=== PATIENT | male | born 1955 | race Caucasian/White ===

== ENCOUNTER 2016-09-09 06:20 | Outpatient (CLI) | payer OTHER ==
[~2016-09-09] VITALS: Ht 170.2 cm; Wt 99.3 kg
[2016-09-09] MEDS ORDERED: IBUP-1780 PO (14:34)
[2016-09-09] MEDS ORDERED: PROP80TA3 PO (14:34)
[2016-09-09] MEDS ORDERED: LEVO175T5 PO (14:34)
[2016-09-09] MEDS ORDERED: GABA-486 PO (14:34)
== END 2016-09-09 14:36 ==
LOC: PREOP 06:20
PROVIDERS: ATTEND Internal Medicine Critical Care Medicine
DX: Z01.818 Encounter for other preprocedural examination (principal); R59.0 Localized enlarged lymph nodes

== ENCOUNTER 2016-09-11 06:39 | Day surgery (SDC) | payer BC ==
[~2016-09-11] VITALS: Ht 170.2 cm; Wt 99.3 kg
[~2016-09-11 06:39] MED LIST: GABA-486 PO; IBUP-1780 PO; LEVO175T5 PO; PROP80TA3 PO
[2016-09-11] MEDS ORDERED: fentaNYL INJECTION 100 MCG/2 ML AMP IVP PRN (06:45)
[2016-09-11] MEDS ORDERED: NS IV 1000 ML 1,000 ML IV PRN (06:45)
[2016-09-11] MEDS ORDERED: NALOXONE 0.4 MG/ML 1 ML (NARCAN) VIAL IVP PRN (06:45)
[2016-09-11] MEDS ORDERED: FLUMAZENIL (ROMAZICON) 0.1 MG/ML 5 ML VIAL INJ PRN (06:45)
[2016-09-11] MEDS ORDERED: MIDAZOLAM 2 MG/2 ML (VERSED) VIAL IVP PRN (06:45)
[2016-09-11 06:55] VITALS: BP 165/96
[2016-09-11] MEDS ORDERED: MIDAZOLAM 2 MG/2 ML (VERSED) VIAL ONE (07:03)
[2016-09-11] MEDS ORDERED: proPOfol 200 MG/20 ML (DIPRIVAN) VIAL IV ONE (07:03)
[2016-09-11] MEDS ORDERED: fentaNYL INJECTION 100 MCG/2 ML AMP ONE (07:03)
[2016-09-11] MEDS ORDERED: ROCURONIUM 50 MG/5 ML (ZEMURON) VIAL IV ONE (07:04)
[2016-09-11] MEDS ORDERED: ONDANSETRON 4 MG/2 ML (SDV) Z0FRAN ONE (07:04)
--- NOTE | 2016-09-11 07:04 | Progress Note-Pre Operative ---
Pre-Operative Progress Note H&P Reviewed The H&P was reviewed, patient examined and no changes noted. Date H&P Reviewed: Sep 11, 2016 Time H&P Reviewed: 07:03 Pre-Operative Diagnosis: lymphadenopathy ELI RUVALCABA DO Sep 11, 2016 07:04
[2016-09-11] MEDS ORDERED: SUCCINYLCHOLINE INJ 100 MG/5 ML SYR ONE (07:08)
[2016-09-11] MEDS ORDERED: NS IV 500 ML 500 ML ONE (07:52)
[2016-09-11] MEDS ORDERED: NS IV 500 ML 500 ML IV PRN (08:03)
--- NOTE | 2016-09-11 09:28 | Diagnostic Imaging Report ---
INDICATION: Post bronchoscopy followup. EXAMINATION: Portable chest at 8:57 AM Heart and mediastinum are normal. Lungs are clear. There are no effusions or pneumothoraces. IMPRESSION: Negative chest. Dictated by: Dictated on workstation # [id number]
[2016-09-11 09:35] VITALS: BP 128/84
[2016-09-11 10:10] VITALS: BP 124/88
[2016-09-11 10:15] VITALS: BP 124/88
--- NOTE | 2016-09-19 09:47 | Pulmonary Procedures ---
Pulmonary Procedures Date of Procedure Date of Service: Sep 11, 2016 Bronch Bronchoscopy with EBUS with bx of station 4L and 11L lymph nodes Preop DX: mediastinal lymphadenopathy PostOP DX: same Complications: None Pt was sedated per anesthesia. Bronchoscopy was advanced through the ED tube and an anatomical undertaken down to the segmental bronchi bilaterally. No endobronchial lesions noted. EBUS was then advanced through ET tube and the mediastinum was US. Station 11L and 4L lymph nodes were sampled via needle bx under US guidance. Pt tolerated procedure well. No complications noted. ELI RUVALCABA DO Sep 19, 2016 09:47
== END 2016-09-11 10:15 | disposition home or self-care (01) ==
LOC: ENDO 06:39
PROVIDERS: ATTEND Internal Medicine Critical Care Medicine
DX: R59.0 Localized enlarged lymph nodes (principal); I10 Essential (primary) hypertension
CPT/HCPCS: 71010; 88112; 88305

== ENCOUNTER → 2016-10-11 | Outpatient (CLI) | payer BC ==
[2016-10-11 10:09] LABS: BASOPHILS % (AUTO) 0 % (0-10); EOSINOPHILS % (AUTO) 0 % (0-10); LYMPHOCYTES # (AUTO) 1.1 X 10^3 (1.0-4.0); LYMPHOCYTES % (AUTO) 9 % (12-44); MEAN CORPUSCULAR HEMOGLOBIN 30 PG (25-34); MEAN CORPUSCULAR HGB CONC 34 G/DL (32-36); MEAN CORPUSCULAR VOLUME 87 FL (80-99); MEAN PLATELET VOLUME 9.5 FL (7.4-10.4); MONOCYTES # (AUTO) 0.8 X 10^3 (0.0-1.0); MONOCYTES % (AUTO) 6 % (0-12); NEUTROPHILS # (AUTO) 10.7 X 10^3 (1.8-7.8); NEUTROPHILS % (AUTO) 85 % (42-75); PLATELET COUNT 334 10^3/uL (130-400); RED BLOOD COUNT 5.05 10^6/uL (4.35-5.85); RED CELL DISTRIBUTION WIDTH 12.5 % (10.0-14.5); WHITE BLOOD COUNT 12.6 10^3/uL (4.3-11.0)
[2016-10-11 10:30] LABS: ALANINE AMINOTRANSFERASE 97 U/L (0-55); ALBUMIN 4.1 G/DL (3.2-4.5); ANION GAP 5 MMOL/L (5-14); ASPARTATE AMINO TRANSFERASE 42 U/L (5-34); BILIRUBIN,TOTAL 0.4 MG/DL (0.1-1.0); BLOOD UREA NITROGEN 22 MG/DL (7-18); BUN/CREATININE RATIO 23; CALCIUM 9.6 MG/DL (8.5-10.1); CARBON DIOXIDE 27 MMOL/L (21-32); CHLORIDE 106 MMOL/L (98-107); CREATININE SERUM 0.95 MG/DL (0.60-1.30); GFR ESTIMATED > 60; GLUCOSE 98 MG/DL (70-105); POTASSIUM 4.1 MMOL/L (3.6-5.0); SODIUM 138 MMOL/L (135-145); TOTAL PROTEIN 6.7 G/DL (6.4-8.2)
--- NOTE | 2016-10-12 19:34 | ECHOCARDIOGRAPHY REPORT ---
DATE OF SERVICE: 10/11/2016 ORDERING PHYSICIAN: Dr. Swathi Hopper. DIAGNOSIS: Shortness of breath. FINDINGS: 1. Sinus rhythm. 2. Left atrial dimensions are normal. 3. Aortic root dimensions are normal. 4. Left ventricular systolic function is preserved. Left ventricular ejection fraction is 60%-70%. Mild concentric LVH is present. 5. There are no wall motion abnormalities. 6. Right heart size and function is normal. 7. There is no evidence of pericardial effusion. 8. Mild diastolic dysfunction is present. 9. IVC is not well visualized. VALVULAR STRUCTURE OF THE HEART: There is mild mitral regurgitation and mild tricuspid regurgitation. RVSP is 19 mmHg. There is mild aortic insufficiency with a pressure half time of 545 milliseconds and deceleration time of 1879 milliseconds. The pulmonic valve was not well visualized. CONCLUSION: 1. Left ventricle and right ventricle size and function is normal. 2. Left ventricular ejection fraction is 60%. 3. There is no significant valvular heart disease. 4. Pulmonary artery pressure is normal. 5. There is mild diastolic dysfunction. Job ID: [id number] DocumentID: [id number] Dictated Date: 10/11/2016 15:31:20 Machine Set Up Technician Date: 10/12/2016 10:41:20 Dictated By: ALBA HOPPER MD
== END ==
LOC: CARD 09:41
PROVIDERS: ATTEND Internal Medicine Critical Care Medicine
DX: R59.0 Localized enlarged lymph nodes (principal); R06.09 Other forms of dyspnea; E66.9 Obesity, unspecified
CPT/HCPCS: 36415; 80053; 82164; 85025; 93306

== ENCOUNTER 2016-10-14 12:18 | Outpatient (RCR) | payer BC ==
[2016-10-17 08:44] LABS: HOURS COLLECTED CA URINE 24 HRS; URINE VOLUME REF CA 1600 ML
[2016-10-17 08:45] LABS: 24HR CRE 1.5 GM/24H (0.8-1.8); URINE CREATININE MG/DL 95 MG/DL
== END 2017-01-09 | disposition home or self-care (01) ==
LOC: LAB 12:18
PROVIDERS: ATTEND Internal Medicine Critical Care Medicine
DX: R59.0 Localized enlarged lymph nodes (principal)
CPT/HCPCS: 36415; 82340

== ENCOUNTER → 2016-10-16 | Outpatient (CLI) | payer BC | LOC: RT 11:20 | PROVIDERS: ATTEND Internal Medicine Critical Care Medicine | DX: R06.09 Other forms of dyspnea (principal); R59.0 Localized enlarged lymph nodes; E66.9 Obesity, unspecified | CPT/HCPCS: 94060; 94726; 94729 ==

== ENCOUNTER → 2017-01-08 | Outpatient (CLI) | payer BC ==
[~2017-01-08] MED LIST changes: +CATHETER FLUSH 10 ML SYR IV PRN; +IOHEXOL 350 MG/ML 100 ML (OMNIPAQUE 350) VIAL IV ONE
[2017-01-08 09:39] LABS: BASOPHILS % (AUTO) 0 % (0-10); EOSINOPHILS # (AUTO) 0.1 10^3/uL (0.0-0.3); EOSINOPHILS % (AUTO) 0 % (0-10); LYMPHOCYTES # (AUTO) 1.2 X 10^3 (1.0-4.0); LYMPHOCYTES % (AUTO) 9 % (12-44); MEAN CORPUSCULAR HEMOGLOBIN 30 PG (25-34); MEAN CORPUSCULAR HGB CONC 34 G/DL (32-36); MEAN CORPUSCULAR VOLUME 88 FL (80-99); MEAN PLATELET VOLUME 9.6 FL (7.4-10.4); MONOCYTES # (AUTO) 0.8 X 10^3 (0.0-1.0); MONOCYTES % (AUTO) 6 % (0-12); NEUTROPHILS # (AUTO) 11.1 X 10^3 (1.8-7.8); NEUTROPHILS % (AUTO) 85 % (42-75); PLATELET COUNT 228 10^3/uL (130-400); RED BLOOD COUNT 5.37 10^6/uL (4.35-5.85); RED CELL DISTRIBUTION WIDTH 14.3 % (10.0-14.5); WHITE BLOOD COUNT 13.1 10^3/uL (4.3-11.0)
[2017-01-08 10:07] LABS: ALANINE AMINOTRANSFERASE 86 U/L (0-55); ALBUMIN 3.9 GM/DL (3.2-4.5); ANION GAP 8 MMOL/L (5-14); ASPARTATE AMINO TRANSFERASE 31 U/L (5-34); BILIRUBIN,TOTAL 0.9 MG/DL (0.1-1.0); BLOOD UREA NITROGEN 23 MG/DL (7-18); BUN/CREATININE RATIO 27; CALCIUM 10.1 MG/DL (8.5-10.1); CARBON DIOXIDE 27 MMOL/L (21-32); CHLORIDE 104 MMOL/L (98-107); CREATININE SERUM 0.84 MG/DL (0.60-1.30); GFR ESTIMATED > 60; GLUCOSE 94 MG/DL (70-105); POTASSIUM 4.3 MMOL/L (3.6-5.0); SODIUM 139 MMOL/L (135-145); TOTAL PROTEIN 6.6 GM/DL (6.4-8.2)
--- NOTE | 2017-01-08 11:35 | Diagnostic Imaging Report ---
PROCEDURE: CT chest with contrast only. TECHNIQUE: Multiple contiguous axial images were obtained through the chest after administration of intravenous contrast. INDICATION: Dyspnea. History of sarcoidosis. 75 mL of Omnipaque 350 is administered intravenously. FINDINGS: There are bilateral hilar mildly enlarged lymph nodes measuring 1.3 cm in the left hilum and 1.2 cm in the right hilum. Also, mediastinal lymph nodes measuring up to 1.6 cm in the infracarinal station and 1.6 cm in the right paratracheal station. There is a superior mediastinal lymph node adjacent to the left subclavian artery measuring 8 mm and a subaortic lymph node also measuring 1.2 cm. These findings are concordant with the provided history of sarcoidosis. There is no axillary lymphadenopathy. The heart size is normal. There is normal thoracic aorta. There is no pleural or pericardial effusion. The lungs demonstrate no significant consolidation. There are a few pulmonary nodules seen bilaterally up to 5 mm in size in the right lung along the minor fissure and 8mm elongated nodule in the left lower lobe, axial image 22. These are nonspecific findings and could be seen with sarcoidosis. There is focal scarring also seen in the lingula. There is no suspicious mass. Sections in the upper abdomen demonstrate hypodense lesion measuring 9 mm in the right hepatic lobe. The osseous structures demonstrate degenerative changes with bridging syndesmophytes. IMPRESSION: There is lymphadenopathy in the caryl and the mediastinum with associated subcentimeter pulmonary nodules up to 8 mm in the left lower lobe. These findings may relate to the provided history of sarcoidosis. A followup CT chest in 6 months is recommended to reevaluate the pulmonary nodules and ensure no adverse development. Dictated by: Dictated on workstation # [id number]
== END ==
LOC: RAD 09:22
PROVIDERS: ATTEND Internal Medicine Critical Care Medicine
DX: R06.09 Other forms of dyspnea (principal); R59.0 Localized enlarged lymph nodes; E66.9 Obesity, unspecified
CPT/HCPCS: 36415; 71260; 80053; 82164; 85025

== ENCOUNTER → 2017-01-14 | Outpatient (CLI) | payer BC ==
[~2017-01-14] MED LIST changes: -CATHETER FLUSH 10 ML SYR IV PRN; -IOHEXOL 350 MG/ML 100 ML (OMNIPAQUE 350) VIAL IV ONE
== END ==
LOC: LAB 10:51
PROVIDERS: ATTEND Nurse Practitioner Family
DX: D86.9 Sarcoidosis, unspecified (principal)
CPT/HCPCS: 36415; 83036

== ENCOUNTER → 2017-07-21 | Outpatient (CLI) | payer BC ==
[~2017-07-21] MED LIST changes: +CATHETER FLUSH 10 ML SYR IV PRN; +IOHEXOL 350 MG/ML 100 ML (OMNIPAQUE 350) VIAL IV ONE; +NS 100 ML (IVPB) BAG IV ONE
[2017-07-21 09:39] LABS: ALBUMIN 4.2 GM/DL (3.2-4.5); BILIRUBIN,TOTAL 0.7 MG/DL (0.1-1.0); CALCIUM 9.7 MG/DL (8.5-10.1); CREATININE SERUM 1.29 MG/DL (0.60-1.30); POTASSIUM 4.3 MMOL/L (3.6-5.0)
--- NOTE | 2017-07-21 11:06 | Diagnostic Imaging Report ---
PROCEDURE: CT chest with contrast only. TECHNIQUE: Multiple contiguous axial images were obtained through the chest after administration of intravenous contrast. INDICATION: Mediastinal lymphadenopathy and history of sarcoidosis. Comparison is made with prior CT chest from 01/08/2017. No axillary lymphadenopathy is identified. The lymph node in the superior mediastinum adjacent to the left subclavian artery measures 12 mm compared with 8 mm. Right paratracheal lymph node measures 1.6 cm compared with 1.6 cm. Lymph nodes in the prevascular space appear to be mild more prominent. Lymph node in the AP window 1.3 cm compare with 1.2 cm. Subcarinal node measures 2.1 cm compare with 1.6 cm. Bilateral hilar lymph nodes appear to be similar to prior exam. No pericardial or pleural fluid is detected. Parenchymal evaluation again show small nodules in the region of the right middle lobe, approximately 5 mm in size. Elongated nodule in the left lower lobe is stable. No new or enlarging parenchymal nodules are seen. There does appear to be some patchy infiltrate that has developed in the posterior left lower lobe since prior. Minimal patchy density medial right lower lobe is also seen. Upper abdomen again demonstrates hepatic steatosis. Vague low density in the right lobe of the liver appears stable. Lymph nodes in the portacaval region appears similar. IMPRESSION: 1. There has been some increase in prominence of mediastinal lymphadenopathy when compared with prior exam from 01/08/2017. Bilateral hilar lymph nodes are stable. The pulmonary parenchymal nodules are stable. There is some mild developing infiltrate in bilateral lower lobes since prior. Dictated by: Dictated on workstation # [id number]
== END ==
LOC: CARD 08:56
PROVIDERS: ATTEND Nurse Practitioner Family
DX: R91.8 Other nonspecific abnormal finding of lung field (principal); R59.0 Localized enlarged lymph nodes; Z87.09 Personal history of other diseases of the respiratory system
CPT/HCPCS: 36415; 71260; 80053; 82164; 83036

== ENCOUNTER 2017-07-29 10:20 | Outpatient (RCR) | payer BC ==
[~2017-07-29 10:20] MED LIST changes: -CATHETER FLUSH 10 ML SYR IV PRN; -IOHEXOL 350 MG/ML 100 ML (OMNIPAQUE 350) VIAL IV ONE; -NS 100 ML (IVPB) BAG IV ONE
[2017-07-29 10:35] LABS: BASOPHILS % (AUTO) 0 % (0-10); EOSINOPHILS # (AUTO) 0.5 10^3/uL (0.0-0.3); EOSINOPHILS % (AUTO) 6 % (0-10); HEMATOCRIT 47 % (40-54); HEMOGLOBIN 16.3 G/DL (13.3-17.7); LYMPHOCYTES # (AUTO) 1.6 X 10^3 (1.0-4.0); LYMPHOCYTES % (AUTO) 20 % (12-44); MEAN CORPUSCULAR HEMOGLOBIN 29 PG (25-34); MEAN CORPUSCULAR HGB CONC 35 G/DL (32-36); MEAN CORPUSCULAR VOLUME 84 FL (80-99); MONOCYTES # (AUTO) 1.1 X 10^3 (0.0-1.0); MONOCYTES % (AUTO) 14 % (0-12); NEUTROPHILS # (AUTO) 4.7 X 10^3 (1.8-7.8); NEUTROPHILS % (AUTO) 60 % (42-75); PLATELET COUNT 245 10^3/uL (130-400); RED BLOOD COUNT 5.58 10^6/uL (4.35-5.85); RED CELL DISTRIBUTION WIDTH 13.2 % (10.0-14.5); WHITE BLOOD COUNT 7.8 10^3/uL (4.3-11.0)
[2017-07-29 10:51] LABS: ALANINE AMINOTRANSFERASE 85 U/L (0-55); ALBUMIN 4.2 GM/DL (3.2-4.5); ALKALINE PHOSPHATASE 52 U/L (40-136); BILIRUBIN,TOTAL 0.6 MG/DL (0.1-1.0); BUN/CREATININE RATIO 14; CALCIUM 9.7 MG/DL (8.5-10.1); CARBON DIOXIDE 24 MMOL/L (21-32); CHLORIDE 105 MMOL/L (98-107); CREATININE SERUM 0.97 MG/DL (0.60-1.30); GFR ESTIMATED > 60; GLUCOSE 100 MG/DL (70-105); POTASSIUM 4.4 MMOL/L (3.6-5.0); SODIUM 137 MMOL/L (135-145); TOTAL PROTEIN 7.2 GM/DL (6.4-8.2)
== END 2017-10-27 | disposition home or self-care (01) ==
LOC: LAB 10:20
PROVIDERS: ATTEND Internal Medicine Critical Care Medicine
DX: R59.0 Localized enlarged lymph nodes (principal); R06.09 Other forms of dyspnea; E66.9 Obesity, unspecified; D86.9 Sarcoidosis, unspecified
CPT/HCPCS: 36415; 80053; 82330; 82340; 85025

== ENCOUNTER 2018-04-13 07:45 | Outpatient (RCR) | payer BC ==
[2018-04-13 08:05] LABS: BASOPHILS % (AUTO) 0 % (0-10); EOSINOPHILS # (AUTO) 0.5 10^3/uL (0.0-0.3); EOSINOPHILS % (AUTO) 7 % (0-10); HEMATOCRIT 47 % (40-54); HEMOGLOBIN 16.2 G/DL (13.3-17.7); LYMPHOCYTES # (AUTO) 1.3 X 10^3 (1.0-4.0); LYMPHOCYTES % (AUTO) 18 % (12-44); MEAN CORPUSCULAR HEMOGLOBIN 30 PG (25-34); MEAN CORPUSCULAR HGB CONC 35 G/DL (32-36); MEAN CORPUSCULAR VOLUME 87 FL (80-99); MEAN PLATELET VOLUME 9.5 FL (7.4-10.4); MONOCYTES # (AUTO) 0.9 X 10^3 (0.0-1.0); MONOCYTES % (AUTO) 13 % (0-12); NEUTROPHILS # (AUTO) 4.5 X 10^3 (1.8-7.8); NEUTROPHILS % (AUTO) 62 % (42-75); PLATELET COUNT 192 10^3/uL (130-400); WHITE BLOOD COUNT 7.2 10^3/uL (4.3-11.0)
[2018-04-13 08:25] LABS: ALANINE AMINOTRANSFERASE 98 U/L (0-55); ALBUMIN 4.3 GM/DL (3.2-4.5); ALKALINE PHOSPHATASE 47 U/L (40-136); BILIRUBIN,TOTAL 0.9 MG/DL (0.1-1.0); BUN/CREATININE RATIO 19; CALCIUM 9.9 MG/DL (8.5-10.1); CARBON DIOXIDE 22 MMOL/L (21-32); CHLORIDE 104 MMOL/L (98-107); CREATININE SERUM 0.95 MG/DL (0.60-1.30); GFR ESTIMATED > 60; GLUCOSE 98 MG/DL (70-105); SODIUM 135 MMOL/L (135-145); TOTAL PROTEIN 7.1 GM/DL (6.4-8.2)
[2018-04-13] MEDS ORDERED: IOHEXOL 350 MG/ML 100 ML (OMNIPAQUE 350) VIAL IV ONE (08:30)
[2018-04-13] MEDS ORDERED: NS 250 ML (IVPB) BAG IV ONE (08:30)
[2018-04-13] MEDS ORDERED: RECEIVED CONTRAST (Hold Metformin) IV SCH (08:30)
--- NOTE | 2018-04-13 09:05 | Diagnostic Imaging Report ---
PROCEDURE: CT chest with contrast only. TECHNIQUE: Multiple contiguous axial images were obtained through the chest after administration of intravenous contrast. INDICATION: Sarcoidosis. Comparison is made with prior chest CT from 07/21/2017. No axillary lymphadenopathy is identified. Enlarged mediastinal lymph nodes are again seen. Marker node adjacent to the left subclavian origin is stable at 12 mm. Right paratracheal node is 18 mm compared with 16 mm. AP window node is 12 mm compared with 13 mm. Subcarinal lymph node is 19 mm compared with 21 mm. Small hilar nodes appear to be stable. No pericardial or pleural fluid is seen. Right middle lobe nodule stable approximately 6 mm compared with 5 mm. Elongated density in left lower lobe appears stable. Previously noted infiltrate left lower lobe has resolved. There is minimal density in the lingula, similar to prior exam. The upper abdomen demonstrates hepatic steatosis. There are some enlarged lymph nodes in the milana hepatis and portacaval location are again seen. Upper abdominal lymph nodes do appear to be slightly larger. Aortocaval node is 14 mm compared with 11 mm. Node just cephalad to the pancreatic head demonstrates short axis measurement of 15 mm compared with 12 mm. IMPRESSION: Mediastinal and hilar lymphadenopathy appears to be fairly stable when compared with exam from 07/21/2017. There has been some increase in size of upper abdominal lymphadenopathy in the portacaval and milana hepatis region since prior exam. Dictated by: Dictated on workstation # [id number]
== END 2018-07-12 | disposition home or self-care (01) ==
LOC: RAD 07:45 → LAB 07:45 → EDSTATUS 08:15
PROVIDERS: ATTEND Internal Medicine Critical Care Medicine
DX: R59.0 Localized enlarged lymph nodes (principal); R06.09 Other forms of dyspnea; E66.9 Obesity, unspecified; D86.9 Sarcoidosis, unspecified
CPT/HCPCS: 36415; 71260; 80053; 82330; 82340; 85025

== ENCOUNTER → 2020-06-07 | Outpatient (CLI) | payer OTHER ==
[~2020-06-07] MED LIST changes: +CATHETER FLUSH 10 ML SYR IV PRN; +HOLD METFORMIN - RECEIVED CONTRAST 20 ML VIAL IV SCH; +IOHEXOL 350 MG/ML 100 ML (OMNIPAQUE 350) VIAL IV ONE; +NS 100 ML (IVPB) BAG IV ONE
[2020-06-07 09:45] LABS: CREATININE SERUM 1.02 MG/DL (0.60-1.30); GFR ESTIMATED > 60
[2020-06-07 09:46] LABS: BUN/CREATININE RATIO 19
--- NOTE | 2020-06-07 11:50 | Diagnostic Imaging Report ---
PROCEDURE: CT chest with contrast only. TECHNIQUE: Multiple contiguous axial images were obtained through the chest after administration of intravenous contrast. Auto Exposure Controls were utilized during the CT exam to meet ALARA standards for radiation dose reduction. DATE: June 07, 2020. COMPARISON: CT chest April 13, 2018. INDICATION: 64-year-old male, history of thyroid cancer and sarcoidosis. FINDINGS: There is a 3 mm pleurally based left lower lobe pulmonary nodule on axial image 62 which is unchanged. There is a 6 mm left upper lobe pulmonary nodule on axial image 63 which is unchanged. There is a 4 mm right upper lobe pulmonary nodule on axial image 67 which is unchanged. There is an unchanged 4 mm nodule in the left upper lobe on axial image 65. There is no new or enlarging pulmonary nodule. There is no lung mass. There is a peripheral area of opacification in the lingula which is unchanged on axial image 65. There is no additional focal airspace consolidation. There is no pneumothorax. There is no pleural effusion. There is no identified pulmonary embolus. The main pulmonary artery is normal in caliber. The heart is not enlarged. There is no pericardial effusion. There is no identified abnormally enlarged mediastinal, hilar, or axillary lymph node meeting CT size criteria for adenopathy. There is diffuse fatty infiltration of the liver. There is a low-attenuation lesion in the right lobe of the liver on axial image 140 measuring 8 mm in size which is too small to characterize. This is also seen and grossly unchanged since April 13, 2018. The additional evaluation of the imaged portions of the upper abdomen is unremarkable. There is no identified acute bony abnormality. IMPRESSION: 1. Stable subcentimeter pulmonary nodules dating back to April 13, 2018, compatible with benign etiology. 2. No current mediastinal, hilar, or axillary adenopathy. 3. No evidence of chronic lung disease. 4. Diffuse fatty infiltration of the liver. Dictated by: Dictated on workstation # [id number]
== END ==
LOC: RAD 09:02
PROVIDERS: ATTEND Internal Medicine Critical Care Medicine
DX: C73 Malignant neoplasm of thyroid gland (principal); D86.9 Sarcoidosis, unspecified; R91.8 Other nonspecific abnormal finding of lung field; K76.0 Fatty (change of) liver, not elsewhere classified; R59.0 Localized enlarged lymph nodes; F17.200 Nicotine dependence, unspecified, uncomplicated
CPT/HCPCS: 36415; 71260; 82565; 84520

== ENCOUNTER 2021-04-13 09:31 | Inpatient (IN) | payer OTHER ==
[2021-04-13] VITALS (7 sets, daily range): BP systolic 136–147; BP diastolic 74–89
[~2021-04-13] VITALS: Ht 69 cm; Wt 102.7 kg
[~2021-04-13 09:31] MED LIST changes: -CATHETER FLUSH 10 ML SYR IV PRN; -HOLD METFORMIN - RECEIVED CONTRAST 20 ML VIAL IV SCH; -IOHEXOL 350 MG/ML 100 ML (OMNIPAQUE 350) VIAL IV ONE; -NS 100 ML (IVPB) BAG IV ONE
[2021-04-13] MEDS ORDERED: LORazepam INJ 2 MG/ML (ATIVAN) VIAL IVP PRN (09:45)
[2021-04-13] MEDS ORDERED: ONDANSETRON 4 MG/2 ML (SDV) Z0FRAN IVP PRN (09:45)
--- NOTE | 2021-04-13 11:20 | History & Physical ---
History of Present Illness HPI/Chief Complaint CC: Acute appendicitis with syncopal episode with bradycardia HPI: This is a 65yoWM who presents to the ICU after having a syncopal episode at [facility] [place] after arriving there due to abdominal pain. He was found to have significant bradycardia at 20 and crash cart was moved into the room due to near complete decompensation. Dr Reese was consulted for central line since they could not obtain access so during the critical episode an IO was placed in his left leg and atropine was given with good results. CT obtained once he was stable revealing appendicitis. Currently his HR is 62 and BP stable. Source: patient, family, RN/MD, old records Exam Limitations: no limitations Date Seen 04/13/21 Time Seen by a Provider: 11:20 Attending Physician Tanja Howard DO PCP Raymundo Cervantes DO Referring Physician Date of Admission Apr 13, 2021 at 10:40 Home Medications & Allergies Home Medications Reviewed patient Home Medication Reconciliation performed by pharmacy medication reconciliations sewing pattern layout technician and/or nursing. Patients Allergies have been reviewed. Allergies Allergies Coded Allergies No Known Drug Allergies (Unverified09/09/16) Past Bdpcjmi-Eqheuu-Vboaim Hx Past Med/Social Hx: Reviewed Nursing Past Med/Soc Hx, Reviewed and Corrections made Patient Social History Marrital Status: Employed/Student: employed ( [employer]) Alcohol Use: Denies Use Smoking Status: Former Smoker Former Smoker, Quit: Sep 12, 1979 Type Used: Smokeless Tobacco Recent Hopitalizations: No Seasonal Allergies Seasonal Allergies: No Past Medical History Surgeries: Thyroidectomy Sarcoidosis Cancer: Thyroid Review of Systems Constitutional: see HPI, malaise, weakness EENTM: no symptoms reported Respiratory: no symptoms reported Cardiovascular: no symptoms reported Gastrointestinal: abdominal pain, loss of appetite, nausea, vomiting Genitourinary: no symptoms reported Musculoskeletal: no symptoms reported Skin: no symptoms reported Psychiatric/Neurological: No Symptoms Reported All Other Systems Reviewed Negative Unless Noted: Yes Physical Exam Physical Exam Vital Signs Vital Signs - First Documented 04/13/21 11:30 Pulse 105 Resp 23 Pulse Ox 96 O2 Delivery Nasal Cannula O2 Flow Rate 1.00 Capillary Refill : Height, Weight, BMI Height: 5'7.00" Weight: 219lbs. 0.0oz. [id number]; 34.3 BMI Method: General Appearance: WD/WN, Anxious, Mild Distress, Other (ill) Eyes: Bilateral Eye Normal Inspection, Bilateral Eye PERRL HEENT: PERRL/EOMI, Normal ENT Inspection, Pharynx Normal Neck: Full Range of Motion, Normal Inspection, Non Tender, Supple, Carotid Bruit Respiratory: Chest Non Tender, Lungs Clear, Normal Breath Sounds, No Accessory Muscle Use, No Respiratory Distress Cardiovascular: Regular Rate, Rhythm, No Edema, No Gallop, No JVD, No Murmur, Normal Peripheral Pulses Gastrointestinal: Normal Bowel Sounds, No Organomegaly, No Pulsatile Mass, So ft, Tenderness Back: Normal Inspection, No CVA Tenderness, No Vertebral Tenderness Extremity: Normal Capillary Refill, Normal Inspection, Normal Range of Motion, Non Tender, No Calf Tenderness, No Pedal Edema Neurologic/Psychiatric: Alert, Oriented x3, No Motor/Sensory Deficits, Normal Mood/Affect Skin: Normal Color, Warm/Dry Lymphatic: No Adenopathy Results Results/Procedures Labs Laboratory Tests 04/13/21 11:27 04/14/21 05:18 Patient resulted labs reviewed. Assessment/Plan Admission Diagnosis Assessment: Acute abdominal pain with acute appendicitis Syncopal episode with severe bradycardia Poor venous access requiring emergent central line by Dr Reese at [facility] [place] Sarcoidosis Plan: Appy Cardiology consult ECHO Admission Status: Observation Reason for Inpatient Admission: appy with syncope Diagnosis/Problems Diagnosis/Problems (1) Syncope and collapse (2) Bradycardia (3) Sarcoidosis (4) Appendicitis Clinical Quality Measures DVT/VTE Risk/Contraindication: Contraindications-Pharm: Other *list below* Other: or TANJA HOWARD DO Apr 13, 2021 11:20
[2021-04-13] MEDS ORDERED: ACETAMINOPHEN 650 MG SUPP (TYLENOL) PR PRN (11:30)
[2021-04-13 11:34] LABS: BASOPHILS % (AUTO) 0 % (0-10); EOSINOPHILS % (AUTO) 0 % (0-10); HEMATOCRIT 48 % (40-54); HEMOGLOBIN 16.3 g/dL (13.3-17.7); LYMPHOCYTES # (AUTO) 0.8 10^3/uL (1.0-4.0); LYMPHOCYTES % (AUTO) 5 % (12-44); MEAN CORPUSCULAR HEMOGLOBIN 30 pg (25-34); MEAN CORPUSCULAR HGB CONC 34 g/dL (32-36); MEAN CORPUSCULAR VOLUME 88 fL (80-99); MEAN PLATELET VOLUME 10.2 fL (9.0-12.2); MONOCYTES # (AUTO) 1.5 10^3/uL (0.0-1.0); MONOCYTES % (AUTO) 9 % (0-12); NEUTROPHILS # (AUTO) 14.5 10^3/uL (1.8-7.8); NEUTROPHILS % (AUTO) 86 % (42-75); PLATELET COUNT 212 10^3/uL (130-400); WHITE BLOOD COUNT 16.9 10^3/uL (4.3-11.0)
[2021-04-13 11:48] LABS: BAND NEUTROPHILS 16 %; EOSINOPHILS % (MANUAL) 1 %; LYMPHOCYTES % (MANUAL) 5 %; MONOCYTES % (MANUAL) 10 %; NEUTROPHILS % (MANUAL) 68 %; RBC MORPH NORMAL
[2021-04-13 11:49] LABS: TOXIC GRANULATION/VACUOLAZATIO 1+
[2021-04-13] MEDS ORDERED: LIDOCAINE/EPI 1%-1:100,000 (XYLOCAINE) 20ML ONE (11:55)
[2021-04-13] MEDS ORDERED: PIPERACILLIN/TAZO 4.5 GM/NS 100 ML IV ONE ×2 (12:00)
[2021-04-13 12:01] LABS: ALBUMIN 3.9 GM/DL (3.2-4.5); BILIRUBIN,TOTAL 1.6 MG/DL (0.1-1.0); CALCIUM 10.8 MG/DL (8.5-10.1); CREATININE SERUM 0.99 MG/DL (0.60-1.30); POTASSIUM 4.2 MMOL/L (3.6-5.0); TOTAL PROTEIN 6.7 GM/DL (6.4-8.2)
[2021-04-13] MEDS: NS IV 1000 ML 1,000 ML IV SCH ×2 (12:01→17:24)
[2021-04-13] MEDS ORDERED: fentaNYL INJ 100 MCG/2 ML AMP ONE (12:20)
[2021-04-13] MEDS ORDERED: proPOfol 200 MG/20 ML (DIPRIVAN) VIAL IV ONE (12:20)
[2021-04-13] MEDS ORDERED: ROCURONIUM 10 MG/ML 5 ML SYRINGE IV ONE (12:20)
[2021-04-13] MEDS ORDERED: SEVOFLURANE (ULTANE) 15 ML INHAL SOLN ONE ×2 (12:20→15:32)
[2021-04-13] MEDS ORDERED: LIDOCAINE PF 2% 5 ML (XYLOCAINE) VIAL ONE (12:20)
[2021-04-13] MEDS ORDERED: ONDANSETRON 4 MG/2 ML (SDV) Z0FRAN ONE (12:20)
[2021-04-13] MEDS ORDERED: MIDAZOLAM 2 MG/2 ML (VERSED) VIAL ONE (12:21)
--- NOTE | 2021-04-13 12:57 | Consultation - Surgery ---
History of Present Illness History of Present Illness Patient Consulted On(joselyn/time) 04/13/21 12:50 Date Seen by Provider: Apr 13, 2021 Time Seen by Provider: 12:50 History of Present Illness Patient is a 65 year old male who had llq abdominal pain last night. Continued to worsen. Nothing made better. Movement made worse. Pain continued and patient passed out twice at outlying facility. Had poor venous access. Was bradycardic and had to be given atropine. Had ct scan that demonstrated acute appendicitis with appendix in llq. Allergies and Home Medications Allergies Coded Allergies: No Known Drug Allergies (Unverified , 09/09/16) Patient Home Medication List Home Medication List Reviewed: Yes Gabapentin (Gabapentin) 100 Mg Capsule, 300 MG PO BID, (Reported) Entered as Reported by: MOHINDER JASON on 09/09/16 1434 Ibuprofen (Ibuprofen) 800 Mg Tablet, 800 MG PO TID PRN for PAIN, (Reported) Entered as Reported by: MOHINDER JASON on 09/09/16 1434 Levothyroxine Sodium (Levothyroxine Sodium) 175 Mcg Tablet, 175 MCG PO DAILY, (Reported) Entered as Reported by: MOHINDER JASON on 09/09/16 1434 Propranolol HCl (Propranolol HCl) 80 Mg Tablet, 80 MG PO BID, (Reported) Entered as Reported by: MOHINDER JASON on 09/09/16 1434 Past Iouhtke-Okeigj-Hdbjwg Hx Patient Social History Former Smoker, Quit: Sep 12, 1979 Type Used: Smokeless Tobacco Recent Hopitalizations: No Alcohol Use?: Yes Substance type: Caffeine Have you traveled recently?: No Seasonal Allergies Seasonal Allergies: No Surgeries History of Surgeries: Yes Surgeries: Thyroidectomy Respiratory History of Respiratory Disorde: Yes (sarcoid) Cardiovascular Cardiac Disorders: Hypertension Neurological History of Neurological Disord: No Genitourinary History of Genitourinary Disor: No Gastrointestinal History of Gastrointestinal Di: No Musculoskeletal History of Musculoskeletal Dis: No Endocrine History of Endocrine Disorders: Yes (thyroid) HEENT History of HEENT Disorders: No Cancer History of Cancer: Yes Cancer: Thyroid Psychosocial History of Psychiatric Problem: No Integumentary History of Skin or Integumenta: No Family Medical History Significant Family History: No Pertinent Family Hx Review of Systems-General Constitutional: No diaphoresis; weakness EENTM: No blurred vision, No double vision, No mouth pain Respiratory: No cough, No dyspnea on exertion Cardiovascular: No chest pain Gastrointestinal: LLQ, abdominal pain (LLQ) Genitourinary: No decreased output, No discharge Musculoskeletal: No back pain, No joint pain Skin: No change in color Psychiatric/Neurological: Denies Anxiety, Denies Depressed, Denies Emotional Problems All Other Systems Reviewed Negative Unless Noted: Yes (Negative excepted noted.) Physical Exam-General Problems Physical Exam Vital Signs Vital Signs - First Documented 04/13/21 04/13/21 11:30 12:47 Temp 37.9 Pulse 105 Resp 23 Pulse Ox 96 O2 Delivery Nasal Cannula O2 Flow Rate 1.00 Capillary Refill : General Appearance: mild distress HEENT: PERRL/EOMI, normal ENT inspection Neck: non-tender, supple Respiratory: chest non-tender, no respiratory distress, no accessory muscle use Cardiovascular: regular rate, rhythm, no JVD Gastrointestinal: tenderness (llq with voluntary guarding.) Back: normal inspection, no CVA tenderness Extremities: non-tender, normal inspection Neurologic/Psychiatric: alert, oriented x 3 Skin: normal color, warm/dry Lymphatic: no adenopathy Data Review Labs Laboratory Tests 04/13/21 11:27: White Blood Count 16.9H, Red Blood Count 5.42, Hemoglobin 16.3, Hematocrit 48, Mean Corpuscular Volume 88, Mean Corpuscular Hemoglobin 30, Mean Corpuscular Hemoglobin Concent 34, Red Cell Distribution Width 12.3, Platelet Count 212, Mean Platelet Volume 10.2, Immature Granulocyte % (Auto) 0, Neutrophils (%) (Auto) 86H, Lymphocytes (%) (Auto) 5L, Monocytes (%) (Auto) 9, Eosinophils (%) (Auto) 0, Basophils (%) (Auto) 0, Neutrophils # (Auto) 14.5H, Lymphocytes # (Auto) 0.8L, Monocytes # (Auto) 1.5H, Eosinophils # (Auto) 0.0, Basophils # (Auto) 0.0, Immature Granulocyte # (Auto) 0.1, Neutrophils % (Manual) 68, Lymphocytes % (Manual) 5, Monocytes % (Manual) 10, Eosinophils % (Manual) 1, Band Neutrophils 16, Toxic Granulation 1+, Blood Morphology Comment NORMAL, Sodium Level 137, Potassium Level 4.2, Chloride Level 103, Carbon Dioxide Level 22, Anion Gap 12, Blood Urea Nitrogen 15, Creatinine 0.99, Estimat Glomerular Filtration Rate 76, BUN/Creatinine Ratio 15, Glucose Level 118H, Calcium Level 10.8H, Corrected Calcium 10.9H, Total Bilirubin 1.6H, Aspartate Amino Transf (AST/SGOT) 47H, Alanine Aminotransferase (ALT/SGPT) 121H, Alkaline Phosphatase 56, Troponin I 0.050H, Total Protein 6.7, Albumin 3.9 Assessment/Plan Assessment/Plan Assessment/Plan llq abd pain acute appendicitis discussed risks and benefits of laparoscopic appendectomy all other indicated procedures npo to or Clinical Quality Measures DVT/VTE Risk/Contraindication: Contraindications-Pharm: Other *list below* Other: or NOEL SOTO DO Apr 13, 2021 12:57
[2021-04-13] MEDS ORDERED: ceFAZolin INJECTION 2,000 MG ONE (13:02)
[2021-04-13] MEDS ORDERED: metroNIDAZOLE 500MG/100ML IVPB 100 ML ONE (13:02)
--- NOTE | 2021-04-13 13:02 | Diagnostic Imaging Report ---
INDICATION: Sarcoid. TIME OF EXAM: 11:34 a.m. COMPARISON: Correlation is made with prior chest from 09/11/2016. FINDINGS: Heart size is stable. Right-sided line has tip overlying the SVC. Lungs appear to be clear. No infiltrates are seen. There is no effusion or pneumothorax. IMPRESSION: No acute cardiopulmonary process is identified. Dictated by: Dictated on workstation # [id number]
--- NOTE | 2021-04-13 13:56 | Consultation-Cardiology ---
HPI-Cardiology Cardiology Consultation Date of Consultation 04/13/21 Date of Admission Time Seen by Provider: 13:51 Indication: Bradycardia HPI 65 years old gentleman with history of hypertension, admitted to [facility] with abdominal pain and diagnosed with appendicitis. While in the ER he had transient episode of severe bradycardia with a heart rate in the 20s, felt lig htheaded and weak. Responded to atropine. Reported a similar episode about 15 years ago. No other syncope or episodes of bradycardia. His previous episode occurred while he was having nausea and vomiting. He has history of sarcoidosis, reported having a stress test and work-up done at [facility] in [place] about a year or 2 ago. Home Medications & Allergies Allergies: Coded Allergies: No Known Drug Allergies (Unverified , 09/09/16) Home Medication List Reviewed: Yes [id number] Hx Patient Social History Marital Status: Employed/Student: employed Type Used: Smokeless Tobacco Recent Hopitalizations: No Have you traveled recently?: No Alcohol Use?: Yes Substance type: Caffeine Past Medical History Discussed below Family Medical History Significant Family History: No Pertinent Family Hx Family Medical Hx Noncontributory Review of Systems-General Review of Systems Constitutional: No diaphoresis; weakness EENTM: No blurred vision, No double vision, No mouth pain Respiratory: No cough, No dyspnea on exertion Cardiovascular: see HPI; No chest pain; other (Near syncope) Gastrointestinal: LLQ, see HPI, abdominal pain (LLQ) Genitourinary: see HPI; No decreased output, No discharge Musculoskeletal: see HPI; No back pain, No joint pain Skin: see HPI; No change in color Psychiatric/Neurological: See HPI; Denies Anxiety, Denies Depressed, Denies Emotional Problems All Other Systems Reviewed Negative Unless Noted: Yes (Negative excepted noted.) Reviewed Test Results Reviewed Test Results Lab Laboratory Tests Test 04/13/21 11:27 Range/Units White Blood Count 16.9 H 4.3-11.0 10^3/uL Red Blood Count 5.42 4.30-5.52 10^6/uL Hemoglobin 16.3 13.3-17.7 g/dL Hematocrit 48 40-54 % Mean Corpuscular Volume 88 80-99 fL Mean Corpuscular Hemoglobin 30 25-34 pg Mean Corpuscular Hemoglobin Concent 34 32-36 g/dL Red Cell Distribution Width 12.3 10.0-14.5 % Platelet Count 212 130-400 10^3/uL Mean Platelet Volume 10.2 9.0-12.2 fL Immature Granulocyte % (Auto) 0 % Neutrophils (%) (Auto) 86 H 42-75 % Lymphocytes (%) (Auto) 5 L 12-44 % Monocytes (%) (Auto) 9 0-12 % Eosinophils (%) (Auto) 0 0-10 % Basophils (%) (Auto) 0 0-10 % Neutrophils # (Auto) 14.5 H 1.8-7.8 10^3/uL Lymphocytes # (Auto) 0.8 L 1.0-4.0 10^3/uL Monocytes # (Auto) 1.5 H 0.0-1.0 10^3/uL Eosinophils # (Auto) 0.0 0.0-0.3 10^3/uL Basophils # (Auto) 0.0 0.0-0.1 10^3/uL Immature Granulocyte # (Auto) 0.1 0.0-0.1 10^3/uL Neutrophils % (Manual) 68 % Lymphocytes % (Manual) 5 % Monocytes % (Manual) 10 % Eosinophils % (Manual) 1 % Band Neutrophils 16 % Toxic Granulation 1+ Blood Morphology Comment NORMAL Sodium Level 137 135-145 MMOL/L Potassium Level 4.2 3.6-5.0 MMOL/L Chloride Level 103 98-107 MMOL/L Carbon Dioxide Level 22 21-32 MMOL/L Anion Gap 12 5-14 MMOL/L Blood Urea Nitrogen 15 7-18 MG/DL Creatinine 0.99 0.60-1.30 MG/DL Estimat Glomerular Filtration Rate 76 BUN/Creatinine Ratio 15 Glucose Level 118 H 70-105 MG/DL Calcium Level 10.8 H 8.5-10.1 MG/DL Corrected Calcium 10.9 H 8.5-10.1 MG/DL Total Bilirubin 1.6 H 0.1-1.0 MG/DL Aspartate Amino Transf (AST/SGOT) 47 H 5-34 U/L Alanine Aminotransferase (ALT/SGPT) 121 H 0-55 U/L Alkaline Phosphatase 56 40-136 U/L Troponin I 0.050 H <0.028 NG/ML Total Protein 6.7 6.4-8.2 GM/DL Albumin 3.9 3.2-4.5 GM/DL Physical Exam Physical Exam Vital Signs Vital Signs - First Documented 04/13/21 11:30 Pulse 105 Resp 23 Pulse Ox 96 O2 Delivery Nasal Cannula O2 Flow Rate 1.00 Capillary Refill : Height, Weight, BMI Height: 5'7.00" Weight: 219lbs. 0.0oz. 99.702624ty; 1085.90 BMI Method: General Appearance: No Apparent Distress, WD/WN Eyes: Bilateral Eye Normal Inspection, Bilateral Eye PERRL, Bilateral Eye EOMI HEENT: PERRL/EOMI, TMs Normal, Normal ENT Inspection, Pharynx Normal, Moist Mucous Membranes Neck: Full Range of Motion, Normal Inspection, Non Tender, Supple, Carotid Bruit Respiratory: Chest Non Tender, Normal Breath Sounds, No Accessory Muscle Use, No Respiratory Distress Cardiovascular: Regular Rate, Rhythm, No Edema, No Gallop, No JVD, No Murmur, Normal Peripheral Pulses Gastrointestinal: No Organomegaly, Soft, Rebound, Tenderness Back: Normal Inspection, No CVA Tenderness, No Vertebral Tenderness Extremity: Normal Capillary Refill, Normal Inspection, Normal Range of Motion, Non Tender, No Calf Tenderness, No Pedal Edema Neurologic/Psychiatric: Alert, Oriented x3, No Motor/Sensory Deficits, Normal Mood/Affect Skin: Normal Color, Warm/Dry Lymphatic: No Adenopathy A/P-Cardiology Admission Diagnosis Syncope Bradycardia Acute appendicitis Hypertension Assessment/Plan Syncope with severe bradycardia, probably vasovagal episode, had transient episode of bradycardia while in the emergency room in [facility]. Responded to atropine. No rhythm strips available at the chart at this time. Patient reported that had similar episode about 15 years ago with nausea and vomiting. We will continue to monitor on telemetry Acute appendicitis, acute abdomen, planning for surgery with Dr. Reese today. I communicated the cardiac condition with Dr. Reese Hypertension, maintained on propranolol as an outpatient, monitor blood pressure History of sarcoidosis, mild LVH on echo. Normal systolic function. Normal conduction. No valvular heart disease. Continue to monitor Obesity, discussed weight loss Preoperative cardiac evaluation, patient is considered at intermediate to high risk for perioperative cardiovascular complications, decision regarding the surgery, risk versus benefit is deferred to the surgeon Clinical Quality Measures DVT/VTE Risk/Contraindication: Contraindications-Pharm: Other *list below* Other: or JASON SEVERINO MD Apr 13, 2021 13:56
[2021-04-13] MEDS: LACTATED RINGERS 1,000 ML IV PRN ×2 (14:06→15:20)
[2021-04-13] MEDS ORDERED: GLYCOPYRROLATE 0.2 MG/ML (ROBINUL) 2 ML VIAL ONE (15:32)
[2021-04-13] MEDS ORDERED: NEOSTIGMINE 3 MG/3 ML VIAL ONE (15:33)
--- NOTE | 2021-04-13 15:53 | Progress Note-Post Operative ---
Post-Operative Progess Note Surgeon (s)/General Warehouse Worker (s) Surgeon NOEL SOTO DO General Warehouse Worker: na Pre-Operative Diagnosis llq abdominal pain, appendicitis Post-Operative Diagnosis perforated appendicitis Procedure & Operative Findings Date of Procedure 04/13/21 Procedure Performed/Findings PROCEDURE: Laparoscopic appendectomy. COMPLICATIONS: None. INDICATIONS: The patient is a 65 year old male who has been having left lower quadrant abdominal pain. Patient's exam consistent with appendicitis, and had a ct scan demonstrating acute appendicitis. I discussed risk and benefits of laparoscopic appendectomy and all indicated procedures with the possibility being a normal appendix. The patient understands the risks and benefits and wishes to proceed. Consent was signed on the chart. DESCRIPTION OF PROCEDURE: The patient was taken to the operating suite, prepped and draped in a sterile fashion. Timeout was performed. Local anesthetic was infiltrated just above the umbilicus and 11-blade scalpel was used to make a skin incision. Cautery was used to dissect down to the fascia and scored. Kochers were used to grasp and elevate it and the abdomen was then entered. A 0 Vicryl was placed in a [id number] fashion for closure at the end of the case. The balloon trocar was inserted into the abdomen and pneumoperitoneum was achieved. Under direct visualization of the laparoscope, a 5 mm trocar was placed in the suprapubic region and a 5 mm trocar was placed in the right lower quadrant. Appendix was located, Inflamed dilated and area of perforation on the appendix. Significant inflammation around the abdomen. The mesoappendix was then divided. A 12 mm trocar had to be placed in the left side of abdomen to get stapler in. Once at the base an Endo-TASNEEM 2.5 stapler was then fired across the base of the appendix. The mesoappendix was then divided. It was then placed in an Endobag and removed through the 12 mm trocar site. The abdomen was then irrigated and suctioned. A 19 yasmin drain was inserted in abdomen and brought out through the right lower quadrant and secured. No other pathology noted. The abdomen was then desufflated and the trocars were removed. The 0 Vicryl placed at the beginning of the case was then tied closing the 12 mm fascial defect. The skin was then closed using 4-0 Monocryl in a subcuticular fashion. The abdomen was then washed and dried and Skin Affix was placed over the incisions. The patient tolerated the procedure well without any complications and was taken to the recovery room in stable condition. Anesthesia Type general Estimated Blood Loss Estimated blood loss (mL): minimal Specimens/Packing Specimens Removed appendix NOEL SOTO DO Apr 13, 2021 15:53
[2021-04-13] MEDS ORDERED: PHENYLEPHRINE 100 MCG/ML 10 ML (ANESTHESIA) SYR ONE (15:55)
--- NOTE | 2021-04-13 16:14 | Tele-ICU Progress Note ---
Subjective Date Seen by a Provider: Apr 13, 2021 Time Seen by a Provider: 16:08 Subjective/Events-last exam He is a 65-year-old male with past medical history of for hypertension presented to the emergency room at outside facility with a complaint of for left lower quadrant pain and feeling that he is going to pass out. Apparently had a bradycardia which is a improved with the atropine. He is subsequently evaluated with a CT of the abdomen and pelvis and found to have an appendicitis. He was seen by cardiology service as well as general surgeon. He was taken to the operating room and I did a laparoscopic examination and found to have a perforated appendicitis which was resected and brought to the intensive care unit for close monitoring and management. He is still under the anesthesia and is slowly recovering. He is not conscious enough to give way detailed history. He is on a facemask at this time with a oxygen saturation of 93. Heart rate is about 82/min. Video visit made. Blood pressure is stable. No tele icu consult requested. Sepsis Event Evaluation Height, Weight, BMI Height: 5'7.00" Weight: 219lbs. 0.0oz. 99.926515sc; 1085.90 BMI Method: Exam Exam Patient acknowledged, consented, and participated in this virtual visit which was conducted using real time audio/video Vital Signs Date Time Temp Pulse Resp B/P (MAP) Pulse Ox O2 Delivery O2 Flow Rate FiO2 04/13/21 13:02 97 04/13/21 12:47 37.9 04/13/21 12:00 105 20 95 Nasal Cannula 1.00 04/13/21 12:00 38.2 04/13/21 11:52 96 Nasal Cannula 1.00 04/13/21 11:45 105 29 94 04/13/21 11:30 105 23 96 Nasal Cannula 1.00 Height & Weight Height: 5'7.00" Weight: 219lbs. 0.0oz. 99.870290zn; 1085.90 BMI Method: General Appearance: No Apparent Distress, WD/WN HEENT: PERRL/EOMI, TMs Normal, Normal ENT Inspection, Pharynx Normal, Moist Mucous Membranes Neck: Full Range of Motion, Normal Inspection, Non Tender, Supple, Carotid Bruit Respiratory: Chest Non Tender, Normal Breath Sounds, No Accessory Muscle Use, No Respiratory Distress Cardiovascular: Regular Rate, Rhythm, No Edema, No Gallop, No JVD, No Murmur, Normal Peripheral Pulses Gastrointestinal: tenderness (llq with voluntary guarding.) Extremity: Normal Capillary Refill, Normal Inspection, Normal Range of Motion, Non Tender, No Calf Tenderness, No Pedal Edema Neurologic/Psychiatric: Alert, Oriented x3, No Motor/Sensory Deficits, Normal Mood/Affect Skin: Normal Color, Warm/Dry Lymphatic: No Adenopathy Other comments PE PER ATTENDING PHYSICIAN Results Lab Laboratory Tests 04/13/21 11:27 Assessment/Plan Assessment/Plan 1. Right lower quadrant pain due to appendicitis. Status post laparoscopic appendicectomy. 2. History of bradycardia most likely vasovagal from pain. Recommendations 1. Continue oxygenation with facemask and wean as tolerated. 2. Pain management for general surgery. 3. Continue to monitor heart rate, blood pressure and urine output. 4. Suggest ulcer prophylaxis and DVT prophylaxis. Critical Care: Critically Ill Patient Time spent with patient (mins): 25 ELINOR MCFARLAND MD Apr 13, 2021 16:13
[2021-04-13] MEDS: PANTOPRAZOLE 40 MG (PROTONIX) VIAL IV SCH (16:51)
[2021-04-13] MEDS: PIPERACILLIN/TAZOBACTAM (BULK) 4.5 GM in NS (IVPB) 100 ML IV SCH (17:24)
[2021-04-13] MEDS ORDERED: LEVO200C2 PO (17:45)
[2021-04-13] MEDS ORDERED: PROP80TA3 PO (17:45)
[2021-04-13] MEDS ORDERED: HYDROcodone/APAP 5 MG/325 MG (LORTAB) TAB PO PRN (20:45)
[2021-04-13] MEDS ORDERED: RT-ALBUTEROL/IPRATROPIUM 3 ML (DUONEB) VIAL INH PRN (23:00)
[2021-04-14] MEDS: NS IV 1000 ML 1,000 ML IV SCH ×3 (00:09→18:13)
[2021-04-14] MEDS: PIPERACILLIN/TAZOBACTAM (BULK) 4.5 GM in NS (IVPB) 100 ML IV SCH ×3 (01:58→18:13)
[2021-04-14 05:28] LABS: BASOPHILS % (AUTO) 0 % (0-10); EOSINOPHILS % (AUTO) 0 % (0-10); HEMATOCRIT 42 % (40-54); HEMOGLOBIN 13.7 g/dL (13.3-17.7); LYMPHOCYTES # (AUTO) 0.9 10^3/uL (1.0-4.0); LYMPHOCYTES % (AUTO) 6 % (12-44); MEAN CORPUSCULAR HEMOGLOBIN 30 pg (25-34); MEAN CORPUSCULAR HGB CONC 33 g/dL (32-36); MEAN CORPUSCULAR VOLUME 91 fL (80-99); MONOCYTES # (AUTO) 1.1 10^3/uL (0.0-1.0); MONOCYTES % (AUTO) 7 % (0-12); NEUTROPHILS % (AUTO) 87 % (42-75); PLATELET COUNT 163 10^3/uL (130-400)
[2021-04-14 05:40] LABS: ALBUMIN 3.4 GM/DL (3.2-4.5); POTASSIUM 4.4 MMOL/L (3.6-5.0)
[2021-04-14 05:42] LABS: TOTAL PROTEIN 5.8 GM/DL (6.4-8.2)
[2021-04-14] MEDS: ACETAMINOPHEN 325 MG TABLET PO PRN ×2 (05:43→10:46)
[2021-04-14 05:44] LABS: BILIRUBIN,TOTAL 0.9 MG/DL (0.1-1.0)
[2021-04-14 05:45] LABS: PHOSPHORUS 2.4 MG/DL (2.3-4.7)
[2021-04-14 05:46] LABS: CREATININE SERUM 1.11 MG/DL (0.60-1.30)
[2021-04-14 05:50] LABS: MAGNESIUM 1.8 MG/DL (1.6-2.4)
[2021-04-14] MEDS: MAGNESIUM 1 GM/100 ML IVPB 100 ML IV SCH (06:45)
[2021-04-14] MEDS: POTASSIUM CL 10MEQ/50ML IVPB 50 ML IV SCH (06:45)
[2021-04-14] MEDS: KCL 20 MEQ TAB (K-DUR) PO SCH (06:47)
[2021-04-14] MEDS: PANTOPRAZOLE 40 MG (PROTONIX) VIAL IV SCH (08:16)
--- NOTE | 2021-04-14 08:39 | Cardiology Progress Note ---
Subjective Date Seen by Provider: Apr 14, 2021 Time Seen by Provider: 08:37 Subjective/Events-last exam Patient is laying down in bed, feeling better. No new complaint. Review of Systems General: No Chills, No Night Sweats, No Fatigue, No Malaise, No Appetite, No Other HEENT: No Head Aches, No Visual Changes, No Eye Pain, No Ear Pain, No Dysphasia, No Sinus Congestion, No Post Nasal Drip, No Sore Throat, No Other Pulmonary: No Dyspnea, No Cough, No Pleuritic Chest Pain, No Other Cardiovascular: No: Chest Pain, Palpitations, Orthopnea, Paroxysmal Noc. Dyspnea, Edema, Lt Headedness, Other Objective-Cardiology Exam Last Set of Vital Signs Vital Signs 04/14/21 04/14/21 07:53 08:00 Temp 36.8 Pulse 78 Resp 12 Pulse Ox 96 O2 Delivery Nasal Cannula O2 Flow Rate 3.00 I&O Intake and Output 04/14/21 00:00 Intake Total 1430 ml Output Total 1515 ml Balance -85 ml Intake Oral 310 ml IV Total 1120 ml Output Urine Total 1425 ml Drainage Total 90 ml Daily Weight Change No General: Alert, Oriented X3, Cooperative HEENT: Atraumatic, PERRLA Neck: Supple, No JVD, No Thyromegaly Lungs: Clear to Auscultation, Normal Air Movement Heart: Regular Rate, Normal S1, Normal S2, No Murmurs Abdomen: Normal Bowel Sounds, Soft, No Tenderness, No Hepatosplenomegaly, No Masses Extremities: No Clubbing, No Cyanosis, No Edema, Normal Pulses, No Tenderness/Swelling Skin: No Rashes, No Breakdown, No Significant Lesion Neuro: Normal Gait, Normal Speech, Strength at 5/5 X4 Ext, Normal Tone, Sensation Intact Psych/Mental Status: Mental Status NL, Mood NL Results Lab Laboratory Tests 04/13/21 11:27 04/14/21 05:18 A/P-Cardiology Admission Diagnosis Syncope Bradycardia Acute appendicitis Hypertension Assessment/Plan Syncope with severe bradycardia, probably vasovagal episode, had transient episode of bradycardia while in the emergency room in [facility]. Responded to atropine. No rhythm strips available at the chart at this time. Patient reported that had similar episode about 15 years ago with nausea and vomiting. We will continue to monitor on telemetry Acute appendicitis, status post appendectomy, done on 04/13/2021, recovering well. Continue to monitor Hypertension, restart propranolol 80 mg daily and monitor tolerance and response Hypothyroidism, restart levothyroxine. History of sarcoidosis, mild LVH on echo. Normal systolic function. Normal conduction. No valvular heart disease. Continue to monitor Obesity, discussed weight loss JASON SEVERINO MD Apr 14, 2021 08:38
[2021-04-14] MEDS: PROPRANOLOL ER 80 MG CAP (INDERAL LA) PO SCH (09:52)
--- NOTE | 2021-04-14 09:54 | Progress Note - Surgery ---
NAJERACoyMAYUR ROACH 04/14/21 0954: Subjective Date Seen by a Provider: Apr 14, 2021 Time Seen by a Provider: 09:34 Subjective/Events-last exam Ismael is awake and resting in bed with his at bedside. He is currently on 3 L/min O2 by OH. He denies any abdominal pain, nausea, or vomiting. He states he is feeling much improved and energetic. Wound sites are healing well; no erythema or swelling. 40 ml were drained from wound drain this AM; wound drainage appears purulent sanguineous. Catheter is to be removed today. Ismael states he has passed flatus x2 in the past 12 hours. Review of Systems General: No Chills, No Night Sweats; Fatigue HEENT: No Head Aches, No Visual Changes Pulmonary: No Dyspnea, No Cough Cardiovascular: No: Chest Pain, Palpitations Gastrointestinal: No: Nausea, Vomiting, Abdominal Pain Genitourinary: No Dysuria, No Frequency Musculoskeletal: No: arm pain, back pain, leg pain Neurological: No: Weakness, Numbness Focused Exam Respiratory: Chest Non Tender, Lungs Clear, Normal Breath Sounds, No Accessory Muscle Use, No Respiratory Distress Cardiovascular: Regular Rate, Rhythm, No Gallop, No Murmur, Normal Peripheral Pulses Peripheral Pulses: 2+ Radial Pulses (R), 2+ Radial Pulses (L) Skin: normal color, warm/dry Objective Exam Vital Signs Date Time Temp Pulse Resp B/P (MAP) Pulse Ox O2 Delivery O2 Flow Rate FiO2 04/14/21 09:00 67 8 95 Nasal Cannula 3.00 Arterial Line 04/14/21 08:00 78 12 96 Nasal Cannula 3.00 04/14/21 07:53 36.8 04/14/21 07:45 96 Nasal Cannula 1.00 04/14/21 07:00 63 04/14/21 07:00 73 17 98 Nasal Cannula 3.00 04/14/21 06:00 59 17 97 Nasal Cannula 3.00 04/14/21 05:00 66 15 96 Nasal Cannula 3.00 04/14/21 04:00 96 Nasal Cannula 2.00 04/14/21 04:00 37.4 04/14/21 04:00 66 15 97 Nasal Cannula 3.00 04/14/21 03:00 69 14 96 Nasal Cannula 3.00 04/14/21 02:00 77 16 95 Nasal Cannula 3.00 04/14/21 01:00 73 16 94 Nasal Cannula 3.00 04/14/21 01:00 70 04/14/21 00:00 37.0 04/14/21 00:00 75 15 95 Nasal Cannula 3.00 04/13/21 23:42 96 Nasal Cannula 2.00 04/13/21 23:00 78 15 96 Nasal Cannula 3.00 04/13/21 22:48 37.1 92 97 04/13/21 22:00 84 14 97 Nasal Cannula 3.00 04/13/21 21:00 80 139/87 (104) 04/13/21 21:00 96 16 97 Nasal Cannula 3.00 04/13/21 20:00 97 Nasal Cannula 3.00 04/13/21 20:00 93 20 93 Nasal Cannula 3.00 04/13/21 20:00 37.5 04/13/21 19:00 97 19 95 Nasal Cannula 3.00 04/13/21 19:00 93 04/13/21 18:00 85 17 96 Nasal Cannula 3.00 04/13/21 17:00 97 10 94 Nasal Cannula 3.00 04/13/21 16:50 Nasal Cannula 3 04/13/21 16:50 37.1 20 139/87 (104) 94 Nasal Cannula 3 04/13/21 16:50 92 17 139/87 94 04/13/21 16:45 94 13 94 04/13/21 16:40 94 13 139/89 93 04/13/21 16:40 16 139/89 (106) 95 Nasal Cannula 3 04/13/21 16:31 95 Nasal Cannula 1.00 04/13/21 16:30 20 146/88 (107) 95 OxyMask 10 04/13/21 16:30 94 17 146/88 95 04/13/21 16:25 OxyMask 10 04/13/21 16:20 94 22 147/83 97 04/13/21 16:20 18 147/83 (104) 97 OxyMask 10 04/13/21 16:15 92 19 93 Nasal Cannula 3.00 04/13/21 16:10 19 141/77 (98) 93 OxyMask 10 04/13/21 16:00 37.5 04/13/21 16:00 37.0 16 136/74 (94) 94 OxyMask 10 04/13/21 16:00 OxyMask 10 04/13/21 13:02 97 04/13/21 12:47 37.9 04/13/21 12:00 105 20 95 Nasal Cannula 1.00 04/13/21 12:00 38.2 04/13/21 11:52 96 Nasal Cannula 1.00 04/13/21 11:45 105 29 94 04/13/21 11:30 105 23 96 Nasal Cannula 1.00 I & O 04/14/21 07:00 Intake Total 1780 ml Output Total 2105 ml Balance -325 ml Capillary Refill : General Appearance: No Apparent Distress, WD/WN, Other (ill) HEENT: PERRL/EOMI, Normal ENT Inspection, Pharynx Normal Neck: Full Range of Motion, Normal Inspection, Non Tender, Supple Respiratory: Chest Non Tender, Lungs Clear, Normal Breath Sounds, No Accessory Muscle Use, No Respiratory Distress Cardiovascular: Regular Rate, Rhythm, No Edema, No Gallop, No JVD, No Murmur, Normal Peripheral Pulses Peripheral Pulses: 2+ Radial Pulses (R), 2+ Radial Pulses (L) Gastrointestinal: soft, tenderness (Mild with palpation, and much improved since 04/13) Extremity: Normal Capillary Refill, Normal Inspection, Normal Range of Motion, Non Tender, No Calf Tenderness, No Pedal Edema Neurologic/Psychiatric: Alert, Oriented x3, No Motor/Sensory Deficits, Normal Mood/Affect Skin: Normal Color, Warm/Dry Lymphatic: No Adenopathy Results Lab Laboratory Tests 04/13/21 11:27: White Blood Count 16.9H, Red Blood Count 5.42, Hemoglobin 16.3, Hematocrit 48, Mean Corpuscular Volume 88, Mean Corpuscular Hemoglobin 30, Mean Corpuscular H emoglobin Concent 34, Red Cell Distribution Width 12.3, Platelet Count 212, Mean Platelet Volume 10.2, Immature Granulocyte % (Auto) 0, Neutrophils (%) (Auto) 86H, Lymphocytes (%) (Auto) 5L, Monocytes (%) (Auto) 9, Eosinophils (%) (Auto) 0, Basophils (%) (Auto) 0, Neutrophils # (Auto) 14.5H, Lymphocytes # (Auto) 0.8L , Monocytes # (Auto) 1.5H, Eosinophils # (Auto) 0.0, Basophils # (Auto) 0.0, Immature Granulocyte # (Auto) 0.1, Neutrophils % (Manual) 68, Lymphocytes % (Manual) 5, Monocytes % (Manual) 10, Eosinophils % (Manual) 1, Band Neutrophils 16, Toxic Granulation 1+, Blood Morphology Comment NORMAL, Sodium Level 137, Potassium Level 4.2, Chloride Level 103, Carbon Dioxide Level 22, Anion Gap 12, Blood Urea Nitrogen 15, Creatinine 0.99, Estimat Glomerular Filtration Rate 76, BUN/Creatinine Ratio 15, Glucose Level 118H, Calcium Level 10.8H, Corrected Ca lcium 10.9H, Total Bilirubin 1.6H, Aspartate Amino Transf (AST/SGOT) 47H, Alanine Aminotransferase (ALT/SGPT) 121H, Alkaline Phosphatase 56, Troponin I 0.050H, Total Protein 6.7, Albumin 3.9 04/14/21 05:18: White Blood Count 15.0H, Red Blood Count 4.56, Hemoglobin 13.7, Hematocrit 42, Mean Corpuscular Volume 91, Mean Corpuscular Hemoglobin 30, Mean Corpuscular Hemoglobin Concent 33, Red Cell Distribution Width 12.8, Platelet Count 163, Mean Platelet Volume 10.0, Immature Granulocyte % (Auto) 0, Neutrophils (%) (Auto) 87H, Lymphocytes (%) (Auto) 6L, Monocytes (%) (Auto) 7, Eosinophils (%) (Auto) 0, Basophils (%) (Auto) 0, Neutrophils # (Auto) 13.0H, Lymphocytes # (Auto) 0.9L, Monocytes # (Auto) 1.1H, Eosinophils # (Auto) 0.0, Basophils # (Auto) 0.0, Immature Granulocyte # (Auto) 0.1, Sodium Level 137, Potassium Level 4.4, Chloride Level 106, Carbon Dioxide Level 22, Anion Gap 9, Blood Urea Nitrogen 21H, Creatinine 1.11, Estimat Glomerular Filtration Rate 67, BUN/Creatinine Ratio 19, Glucose Level 143H, Calcium Level 10.0, Corrected Calcium 10.5H, Total Bilirubin 0.9, Aspartate Amino Transf (AST/SGOT) 27, Alanine Aminotransferase (ALT/SGPT) 79H, Alkaline Phosphatase 38L, Total Protein 5.8L, Albumin 3.4, Phosphorus Level 2.4, Magnesium Level 1.8 Meds Item Value Date Time Propranolol HCl 80 mg 04/14/21 0900 (Inderal La) DAILY/PO Levothyroxine 200 mcg 04/15/21 0630 Sodium DAILY@0630/PO (Synthroid Tablet) Potassium Chloride 50 ml @ 0 mls/hr 04/14/21 0600 Magnesium Sulfate/ 100 ml @ 0 mls/hr 04/14/21 0600 Dextrose DAILY@0600/IV Potassium Chloride 40 meq 04/14/21 0600 (K Dur Tablet) DAILY@0600/PO Acetaminophen 650 mg 04/14/21 0545 (Tylenol Tablet) Q4H PRN/PO 04/14/21 0543 Albuterol/ 3 ml 04/13/21 2300 Ipratropium RTQ4HR PRN/INH (Duoneb Inhalation Solution) Acetaminophen/ 1 ea 04/13/21 2045 Hydrocodone Bitart Q4H PRN/PO (Lortab 5 Mg Tablet) Piperacillin Sod/ 120 ml @ 30 mls/hr 04/13/21 1800 Tazobactam Sod Q8H/IV 04/14/21 0158 4.5 gm/Sodium Chloride Pantoprazole 40 mg 04/13/21 1627 (Protonix DAILY/IV 04/14/21 0816 Injection) Lactated Ringer's 1,000 ml @ 0 mls/hr 04/13/21 1315 Acetaminophen 650 mg 04/13/21 1130 (Tylenol Q4H PRN/WV 04/13/21 1247 Suppository) Ondansetron HCl 4 mg 04/13/21 0945 (Zofran Q4H PRN/IVP Injection (Sdv)) Lorazepam 0.25 mg 04/13/21 0945 (Ativan Q3HR PRN/IVP Injection) Fentanyl Citrate 50 mcg 04/13/21 0945 (Sublimaze Q1H PRN/IVP Injection) Sodium Chloride 1,000 ml @ 125 mls/hr 04/13/21 0945 Assessment/Plan Assessment/Plan Admission Diagonsis Appendicitis Assessment/Plan llq abd pain acute appendicitis Resolved s/p appendectomy Continue to monitor wounds and wound vac fluid Continue Abx Lovenox 40 mg Q24 hours for DVT prophylaxis Clinical Quality Measures DVT/VTE Risk/Contraindication: Contraindications-Pharm: Other *list below* Other: or NOEL SOTO DO 04/14/21 1531: Subjective Subjective/Events-last exam Patient feeling better than yesterday. His pain is decreased. He is not having nausea or vomiting. He is tolerating liquids. He has some purulent drainage from the STEPHANIE drain. Catheter removed this morning. He is passing flatus. Denies fever sweats chills shortness of breath or chest pain. Objective Exam General Appearance: No Apparent Distress, WD/WN HEENT: PERRL/EOMI, Normal ENT Inspection, Pharynx Normal Neck: Non Tender, Supple Respiratory: Chest Non Tender, No Accessory Muscle Use, No Respiratory Distress Cardiovascular: Regular Rate, Rhythm, No JVD Gastrointestinal: soft, tenderness (Mild with palpation, and much improved compared to yesterday.) Extremity: Normal Inspection, Non Tender Neurologic/Psychiatric: Alert, Oriented x3, Normal Mood/Affect Skin: Normal Color, Warm/Dry Lymphatic: No Adenopathy Assessment/Plan Assessment/Plan Assessment/Plan Left lower quadrant abdominal pain Acute appendicitis which was perforated status post laparoscopic appendectomy and drain placement. Bradycardia Hypertension Sarcoid Patient continue on Zosyn Lovenox for milligrams daily for DVT prophylaxis SCDs Continue clear liquids today. Repeat labs tomorrow. Supervisory-Addendum Brief Verification & Attestation Participated in pt care: history, MDM, physical Personally performed: exam, history, MDM, supervision of care Care discussed with: Medical Student Procedures: n/a Results interpretation: Verified all documentation Verification and Attestation of Medical Student E/M Service A medical student performed and documented this service in my presence. I reviewed and verified all information documented by the medical student and made modifications to such information, when appropriate. I personally performed the physical exam and medical decision making. Noel Soto, Apr 14, 2021,15:30 MAYUR CARR Apr 14, 2021 09:54 NOEL SOTO DO Apr 14, 2021 15:31
--- NOTE | 2021-04-14 10:04 | Tele-ICU Progress Note ---
Subjective Date Seen by a Provider: Apr 14, 2021 Time Seen by a Provider: 10:04 Subjective/Events-last exam Patient today states that his abdominal pain significantly improved. He is able to sit down in the bedside chair with the help of physical therapy. Hemodynamically stable he is requiring about 3 L of nasal cannula. Blood pressure stable. STEPHANIE drain draining about 40 cc of slightly purulent material every shift. He is on broad-spectrum antibiotics. White count is 15.0 today. Review of Systems ROS PER ATTENDING . Sepsis Event Evaluation Height, Weight, BMI Height: 5'7.00" Weight: 219lbs. 0.0oz. 99.396003uw; 222.22 BMI Method: Exam Exam Patient acknowledged, consented, and participated in this virtual visit which was conducted using real time audio/video Vital Signs Date Time Temp Pulse Resp B/P (MAP) Pulse Ox O2 Delivery O2 Flow Rate FiO2 04/14/21 09:00 67 8 95 Nasal Cannula 3.00 Arterial Line 04/14/21 08:00 78 12 96 Nasal Cannula 3.00 04/14/21 07:53 36.8 04/14/21 07:45 96 Nasal Cannula 1.00 04/14/21 07:00 63 04/14/21 07:00 73 17 98 Nasal Cannula 3.00 04/14/21 06:00 59 17 97 Nasal Cannula 3.00 04/14/21 05:00 66 15 96 Nasal Cannula 3.00 04/14/21 04:00 96 Nasal Cannula 2.00 04/14/21 04:00 37.4 04/14/21 04:00 66 15 97 Nasal Cannula 3.00 04/14/21 03:00 69 14 96 Nasal Cannula 3.00 04/14/21 02:00 77 16 95 Nasal Cannula 3.00 04/14/21 01:00 73 16 94 Nasal Cannula 3.00 04/14/21 01:00 70 04/14/21 00:00 37.0 04/14/21 00:00 75 15 95 Nasal Cannula 3.00 04/13/21 23:42 96 Nasal Cannula 2.00 04/13/21 23:00 78 15 96 Nasal Cannula 3.00 04/13/21 22:48 37.1 92 97 04/13/21 22:00 84 14 97 Nasal Cannula 3.00 04/13/21 21:00 80 139/87 (104) 04/13/21 21:00 96 16 97 Nasal Cannula 3.00 04/13/21 20:00 97 Nasal Cannula 3.00 04/13/21 20:00 93 20 93 Nasal Cannula 3.00 04/13/21 20:00 37.5 04/13/21 19:00 97 19 95 Nasal Cannula 3.00 04/13/21 19:00 93 04/13/21 18:00 85 17 96 Nasal Cannula 3.00 04/13/21 17:00 97 10 94 Nasal Cannula 3.00 04/13/21 16:50 Nasal Cannula 3 04/13/21 16:50 37.1 20 139/87 (104) 94 Nasal Cannula 3 04/13/21 16:50 92 17 139/87 94 04/13/21 16:45 94 13 94 04/13/21 16:40 94 13 139/89 93 04/13/21 16:40 16 139/89 (106) 95 Nasal Cannula 3 04/13/21 16:31 95 Nasal Cannula 1.00 04/13/21 16:30 20 146/88 (107) 95 OxyMask 10 04/13/21 16:30 94 17 146/88 95 04/13/21 16:25 OxyMask 10 04/13/21 16:20 94 22 147/83 97 04/13/21 16:20 18 147/83 (104) 97 OxyMask 10 04/13/21 16:15 92 19 93 Nasal Cannula 3.00 04/13/21 16:10 19 141/77 (98) 93 OxyMask 10 04/13/21 16:00 37.5 04/13/21 16:00 37.0 16 136/74 (94) 94 OxyMask 10 04/13/21 16:00 OxyMask 10 04/13/21 13:02 97 04/13/21 12:47 37.9 04/13/21 12:00 105 20 95 Nasal Cannula 1.00 04/13/21 12:00 38.2 04/13/21 11:52 96 Nasal Cannula 1.00 04/13/21 11:45 105 29 94 04/13/21 11:30 105 23 96 Nasal Cannula 1.00 I & O 04/14/21 07:00 Intake Total 1780 ml Output Total 2105 ml Balance -325 ml Height & Weight Height: 5'7.00" Weight: 219lbs. 0.0oz. 99.559798fe; 222.22 BMI Method: General Appearance: No Apparent Distress, WD/WN, Other (ill) HEENT: PERRL/EOMI, Normal ENT Inspection, Pharynx Normal Neck: Full Range of Motion, Normal Inspection, Non Tender, Supple Respiratory: Chest Non Tender, Lungs Clear, Normal Breath Sounds, No Accessory Muscle Use, No Respiratory Distress Cardiovascular: Regular Rate, Rhythm, No Edema, No Gallop, No JVD, No Murmur, Normal Peripheral Pulses Peripheral Pulses: 2+ Radial Pulses (R), 2+ Radial Pulses (L) Gastrointestinal: soft, tenderness (Mild with palpation, and much improved since 04/13) Extremity: Normal Capillary Refill, Normal Inspection, Normal Range of Motion, Non Tender, No Calf Tenderness, No Pedal Edema Neurologic/Psychiatric: Alert, Oriented x3, No Motor/Sensory Deficits, Normal Mood/Affect Skin: Normal Color, Warm/Dry Lymphatic: No Adenopathy Other comments PE PER ATTENDING PHYSICIAN Results Lab Laboratory Tests 04/13/21 11:27 04/14/21 05:18 Assessment/Plan Assessment/Plan 1. Right lower quadrant pain due to appendicitis. Status post laparoscopic appendicectomy. 2. History of bradycardia most likely vasovagal from pain. Now improved Recommendations 1. Continue oxygenation with N/C and wean as tolerated. 2. Pain management for general surgery. 3. Continue to monitor heart rate, blood pressure and urine output. 4. Suggest ulcer prophylaxis and DVT prophylaxis. Critical Care: Critically Ill Patient ELINOR MCFARLAND MD Apr 14, 2021 10:04
[2021-04-14] MEDS: NICOTINE 14 MG (NICODERM) PATCH TD SCH (10:36)
--- NOTE | 2021-04-14 10:43 | Physical Therapy Evaluation ---
PT Evaluation-General Medical Diagnosis Admission Date Apr 13, 2021 at 10:40 Medical Diagnosis: acute appendicitis Onset Date: Apr 13, 2021 Therapy Diagnosis Therapy Diagnosis: decrease mobility Height/Weight Height (Feet): 5 Height (Inches): 7.00 Weight (Pounds): 219 Weight (Ounces): 0.0 Precautions Precautions/Isolations: Fall Prevention, Standard Precautions Weight Bear Status Right Lower Extremity: Right Full Weight Bearing Left Lower Extremity: Left Full Weight Bearing Referral Physician: Dr. Sauceda Reason for Referral: Evaluation/Treatment Medical History Additional Medical History thyroidectomy Current History Transfer from [facility] [place] with bradycardia. Reviewed History: Yes Social History Home: Single Level Current Living Status: Spouse Entry Into Home: Stairs With Railing PT Steps Into Home: 3 Prior Prior Level of Function SCALE: Activities may be completed with or without assistive devices. 4-Xngmrkzllj-wukbnmk completes the activity by him/herself with no assistance from a helper. 5-Set-up or Clean-up Assistance-helper sets up or cleans up; patient completes activity. Fleming assists only prior to or following the activity. 4-Supervision or Touching Assistance-helper provides verbal cues and/or touching/steadying and/or contact guard assistance as patient completes activity. Assistance may be provided throughout the activity or intermittently. 3-Partial/Moderate Assistance-helper does LESS THAN HALF the effort. Fleming l ifts, holds or supports trunk or limbs, but provides less than half the effort. 2-Substantial/Maximal Assistance-helper does MORE THAN HALF the effort. Fleming lifts or holds trunk or limbs and provides more than half the effort. 1-Malohzdjq-ebzjuo does ALL the effort. Patient does none of the effort to complete the activity. Or, the assistance of 2 or more helpers is required for t he patient to complete the activity. If activity was not attempted, code reason: 7-Patient Refused. 9-Not Applicable-not attempted and the patient did not perform the activity before the current illness, exacerbation or injury. 10-Not Attempted due to Environmental Limitations-(lack of equipment, weather restraints, etc.). 88-Not Attempted due to Medical Conditions or Safety Concerns. Bed Mobility: 6 Transfers (B,C,W/C): 6 Gait: 6 Stairs: 6 Indoor Mobility (Ambulation): Independent Stairs: Independent Prior Devices Use: None PT Evaluation-Current Subjective Pt. in bed, agrees to sit up in chair. He has no complaints, motivated to return home. Pt/Family Goals home with spouse Objective Patient Orientation: Person, Place, Time, Situation Attachments: Oxygen, Drains, Soto Catheter, IV ROM/Strength ROM Upper Extremities WNL ROM Lower Extremities WNL Strength Upper Extremities WNL Strength Lower Extremities Grossly 5/5 (B) Integumentary/Posture Integumentary see nursing notes, surgery for acute appendicitis Bowel Incontinence: No Bladder Incontinence: Soto Cath Posture unremarkable Neuromuscular (Tone, Coordination, Reflexes) intact Sensory Vision: Functional Hearing: Functional Sensation Right Upper Extremit: Intact Sensation Left Upper Extremity: Intact Sensation Right Lower Extremit: Intact Sensation Left Lower Extremity: Intact Transfers Lying to Sitting/Side of Bed(Q: 4 Sit to Stand (QC): 4 Chair/Voo-oe-Ictaf Xfer(QC): 4 Wheelchair Training Does the Pt Use a Wheelchair?: No Balance Sitting Static: Good Sitting Dynamic: Good Standing Static: Good Standing Dynamic: Good Assessment/Needs Pt. is a 65 y.o. male s/p surgery for acute appendicitis and who presents with mild mobility deficits. Pt. is currently CGA with transfers. His mobility should begin to progress well. Pt. to be seen for short-term PT to restore safe mobility for return home. Rehab Potential: Good PT Short Term Goals Short Term Goals Time Frame: Apr 18, 2021 Lying to sitting on side of be: 6 Sit to stand: 6 Chair/eit-bv-qhgdl transfer: 6 Walk 10 feet: 6 Walk 50 feet with two turns: 6 Walk 150 feet: 6 PT Plan Problem List Problem List: Activity Tolerance, Functional Strength, Safety, Balance, Gait, Transfer, Bed Mobility, ROM Treatment/Plan Treatment Plan: Continue Plan of Care Treatment Plan: Bed Mobility, Education, Functional Activity Lindsey, Functional Strength, Gait, Safety, Therapeutic Exercise, Transfers Treatment Duration: Apr 18, 2021 Frequency: 6 times per week Estimated Hrs Per Day: .25 hour per day Patient and/or Family Agrees t: Yes Time/GCodes Time In: 0950 Time Out: 1003 Total Billed Treatment Time: 13 Total Billed Treatment 1, JUANABRET 13' THA BALDERAS PT Apr 14, 2021 10:43
[2021-04-14] MEDS: ENOXAPARIN 40 MG/0.4 ML (LOVENOX) SYR SC SCH (13:34)
[2021-04-14] MEDS: fentaNYL INJ 100 MCG/2 ML AMP IVP PRN ×2 (13:41→16:26)
--- NOTE | 2021-04-14 13:41 | Anesthesia-General Post-Op ---
General Patient Condition Mental Status/LOC: Same as Preop Cardiovascular: Satisfactory Nausea/Vomiting: Absent Respiratory: Satisfactory Pain: Controlled Complications: Absent Post Op Complications Complications None Follow Up Care/Instructions Patient Instructions None needed. Anesthesia/Patient Condition Patient Condition Patient is doing well, no complaints, stable vital signs, no apparent adverse anesthesia problems. No complications reported per nursing. CHRISTINA HENRIQUEZ CRNA Apr 14, 2021 13:41
--- NOTE | 2021-04-14 19:15 | Progress Note - Hospitalist ---
Subjective HPI/CC On Admission Date Seen by Provider: Apr 14, 2021 Time Seen by Provider: 09:30 CC: Acute appendicitis with syncopal episode with bradycardia HPI: This is a 65yoWM who presents to the ICU after having a syncopal episode at [facility] after arriving there due to abdominal pain. He was found to have significant bradycardia at 20 and crash cart was moved into the room due to near complete decompensation. Dr Reese was consulted for central line since they could not obtain access so during the critical episode an IO was placed in his left leg and atropine was given with good results. CT obtained once he was stable revealing appendicitis. Currently his HR is 62 and BP stable. Subjective/Events-last exam He is feeling better today. He is having some belly pain which he thinks is gas, but nothing as bad as when he came in. He has not eaten or drank anything. He denies nausea and vomiting. He has not been out of bed yet. Objective Exam Vital Signs Vital Signs Date Time Temp Pulse Resp B/P (MAP) Pulse Ox O2 Delivery O2 Flow Rate FiO2 04/14/21 18:00 90 14 155/79 99 Nasal Cannula 2.00 04/14/21 16:00 36.8 Capillary Refill : General Appearance: No Apparent Distress, WD/WN Respiratory: Lungs Clear, Normal Breath Sounds, No Respiratory Distress Cardiovascular: Regular Rate, Rhythm, No Edema, No Murmur Gastrointestinal: Normal Bowel Sounds, Soft, Tenderness, Other (drain in place right lower quadrant) Extremity: Normal Inspection, Non Tender, No Pedal Edema Neurologic/Psychiatric: Alert, No Motor/Sensory Deficits, Normal Mood/Affect Skin: Normal Color, Warm/Dry Results/Procedures Lab Laboratory Tests 04/14/21 05:18 Patient resulted labs reviewed. Assessment/Plan Assessment and Plan Assess & Plan/Chief Complaint Acute appendicitis Surgery following s/p laparoscoic appendectomy 04/[address] Vasovagal syncope Bradycardia Cardiology following Heart rates improved Sarcoidosis Clinically significant, no acute management needs Tobacco abuse Nicotine patch DVT prophylaxis: Lovenox Diagnosis/Problems Diagnosis/Problems (1) Appendicitis Status: Acute Qualifiers: Appendicitis type: acute appendicitis Appendicitis perforation presence: with perforation (2) Syncope and collapse Status: Acute (3) Bradycardia Status: Acute (4) Sarcoidosis Status: Chronic (5) Tobacco abuse Status: Chronic Clinical Quality Measures DVT/VTE Risk/Contraindication: Contraindications-Pharm: Other *list below* Other: or JOHANNE LIEBERMAN MD Apr 14, 2021 19:15
[2021-04-15] MEDS: NS IV 1000 ML 1,000 ML IV SCH ×2 (02:11→09:53)
[2021-04-15] MEDS: PIPERACILLIN/TAZOBACTAM (BULK) 4.5 GM in NS (IVPB) 100 ML IV SCH ×3 (02:11→17:40)
[2021-04-15] MEDS ORDERED: MAGNESIUM 1 GM/100 ML IVPB 100 ML IV SCH (06:00)
[2021-04-15] MEDS ORDERED: POTASSIUM CL 10MEQ/50ML IVPB 50 ML IV SCH (06:00)
[2021-04-15] MEDS ORDERED: KCL 20 MEQ TAB (K-DUR) PO SCH (06:00)
[2021-04-15 06:04] LABS: BASOPHILS % (AUTO) 0 % (0-10); EOSINOPHILS % (AUTO) 0 % (0-10); HEMATOCRIT 39 % (40-54); LYMPHOCYTES # (AUTO) 0.9 10^3/uL (1.0-4.0); LYMPHOCYTES % (AUTO) 8 % (12-44); MEAN CORPUSCULAR HEMOGLOBIN 30 pg (25-34); MEAN CORPUSCULAR HGB CONC 33 g/dL (32-36); MEAN CORPUSCULAR VOLUME 92 fL (80-99); MEAN PLATELET VOLUME 9.7 fL (9.0-12.2); MONOCYTES % (AUTO) 9 % (0-12); NEUTROPHILS # (AUTO) 9.1 10^3/uL (1.8-7.8); NEUTROPHILS % (AUTO) 82 % (42-75); PLATELET COUNT 148 10^3/uL (130-400); WHITE BLOOD COUNT 11.1 10^3/uL (4.3-11.0)
[2021-04-15 06:13] LABS: POTASSIUM 3.9 MMOL/L (3.6-5.0)
[2021-04-15 06:15] LABS: CALCIUM 9.6 MG/DL (8.5-10.1)
[2021-04-15 06:19] LABS: CREATININE SERUM 0.94 MG/DL (0.60-1.30); PHOSPHORUS 1.7 MG/DL (2.3-4.7)
[2021-04-15] MEDS: KCL 20 MEQ TAB (K-DUR) PO SCH (06:38)
[2021-04-15] MEDS: MAGNESIUM 1 GM/100 ML IVPB 100 ML IV SCH (06:38)
[2021-04-15] MEDS: POTASSIUM CL 10MEQ/50ML IVPB 50 ML IV SCH (06:38)
[2021-04-15] MEDS: LEVOTHYROXINE 100 MCG (LEVOTHROID) TAB PO SCH (06:40)
[2021-04-15] MEDS: NICOTINE 14 MG (NICODERM) PATCH TD SCH (09:29)
[2021-04-15] MEDS: PANTOPRAZOLE 40 MG (PROTONIX) VIAL IV SCH (09:29)
[2021-04-15] MEDS: PROPRANOLOL ER 80 MG CAP (INDERAL LA) PO SCH (09:29)
[2021-04-15] MEDS: PATCH REMOVAL TP SCH (09:30)
--- NOTE | 2021-04-15 09:40 | Progress Note - Surgery ---
NAJERA-MAYUR ROACH 04/15/21 0940: Subjective Date Seen by a Provider: Apr 15, 2021 Time Seen by a Provider: 09:34 Subjective/Events-last exam Patient is resting in bed today, without any pain. States that pain medication was making him feel "loopy", so we discussed using tylenol instead. He is passing flatus, and drain contents appear sero-sanguineous. Incisions continue to heal well. Will move down to fourth floor today, and discussed getting up and moving around more. Blood pressure has been high, continue to monitor. Continues to be on NC with 2 L/min O2. Review of Systems General: No Chills, No Night Sweats HEENT: No Head Aches, No Visual Changes Pulmonary: No Dyspnea, No Cough Cardiovascular: No: Chest Pain, Palpitations Gastrointestinal: No: Vomiting, Abdominal Pain Genitourinary: No Dysuria, No Frequency Musculoskeletal: No: arm pain, leg pain Neurological: Weakness; No: Numbness Focused Exam Respiratory: Chest Non Tender, Lungs Clear Cardiovascular: Regular Rate, Rhythm, Normal Peripheral Pulses Peripheral Pulses: 2+ Radial Pulses (R), 2+ Radial Pulses (L) Skin: normal color, warm/dry Objective Exam Vital Signs Date Time Temp Pulse Resp B/P (MAP) Pulse Ox O2 Delivery O2 Flow Rate FiO2 04/15/21 09:00 85 14 183/96 92 Nasal Cannula 2.00 04/15/21 08:01 36.6 04/15/21 08:00 87 19 186/90 94 Nasal Cannula 2.00 04/15/21 07:32 93 Room Air 04/15/21 07:00 83 21 163/83 94 Nasal Cannula 2.00 04/15/21 07:00 91 04/15/21 06:00 89 18 152/90 95 Nasal Cannula 2.00 04/15/21 05:00 88 21 152/89 93 Nasal Cannula 2.00 04/15/21 04:00 96 Room Air 04/15/21 04:00 37.2 04/15/21 04:00 80 18 145/72 91 Nasal Cannula 2.00 04/15/21 03:00 84 20 155/83 96 Nasal Cannula 2.00 04/15/21 02:00 81 16 156/77 98 Nasal Cannula 2.00 04/15/21 01:00 73 17 154/80 98 Nasal Cannula 2.00 04/15/21 01:00 82 04/15/21 00:00 90 21 160/76 95 Nasal Cannula 2.00 04/15/21 00:00 96 Room Air 04/15/21 00:00 37.0 04/14/21 23:00 87 17 151/79 96 Nasal Cannula 2.00 04/14/21 22:00 97 16 155/83 97 Nasal Cannula 2.00 04/14/21 21:00 92 19 145/78 94 Nasal Cannula 2.00 04/14/21 20:00 89 17 155/75 98 Nasal Cannula 2.00 04/14/21 20:00 37.1 04/14/21 20:00 96 Room Air 04/14/21 19:00 83 04/14/21 19:00 87 19 156/89 99 Nasal Cannula 2.00 04/14/21 18:00 90 14 155/79 99 Nasal Cannula 2.00 04/14/21 17:06 Nasal Cannula 2.00 04/14/21 17:00 75 15 143/78 98 Room Air 04/14/21 16:15 95 Room Air 04/14/21 16:00 36.8 04/14/21 16:00 36.8 04/14/21 16:00 81 20 161/82 96 Room Air 04/14/21 15:00 74 14 148/80 95 Room Air 04/14/21 14:00 74 7 151/81 95 Room Air 04/14/21 13:00 76 16 148/77 95 Room Air 04/14/21 12:51 75 04/14/21 12:06 95 Room Air 04/14/21 12:00 80 12 160/86 96 Room Air 04/14/21 11:29 Room Air 04/14/21 11:19 36.5 04/14/21 11:00 74 14 149/85 94 Nasal Cannula 3.00 04/14/21 10:00 71 145/88 94 Nasal Cannula 3.00 I & O 04/15/21 07:00 Intake Total 2420 ml Output Total 2100 ml Balance 320 ml Capillary Refill : General Appearance: No Apparent Distress, WD/WN HEENT: PERRL/EOMI, Normal ENT Inspection, Pharynx Normal Neck: Non Tender, Supple Respiratory: Lungs Clear, Normal Breath Sounds, No Respiratory Distress Cardiovascular: Regular Rate, Rhythm, No Edema, No Murmur Peripheral Pulses: 2+ Radial Pulses (R), 2+ Radial Pulses (L) Gastrointestinal: soft, tenderness (Mild with palpation, and much improved compared to yesterday.) Extremity: Normal Inspection, Non Tender, No Pedal Edema Neurologic/Psychiatric: Alert, No Motor/Sensory Deficits, Normal Mood/Affect Skin: Normal Color, Warm/Dry Lymphatic: No Adenopathy Results Lab Laboratory Tests 04/15/21 05:52: White Blood Count 11.1H, Red Blood Count 4.28L, Hemoglobin 13.0L, Hematocrit 39L , Mean Corpuscular Volume 92, Mean Corpuscular Hemoglobin 30, Mean Corpuscular Hemoglobin Concent 33, Red Cell Distribution Width 12.6, Platelet Count 148, Mean Platelet Volume 9.7, Immature Granulocyte % (Auto) 0, Neutrophils (%) (Auto) 82H, Lymphocytes (%) (Auto) 8L, Monocytes (%) (Auto) 9, Eosinophils (%) (Auto) 0, Basophils (%) (Auto) 0, Neutrophils # (Auto) 9.1H, Lymphocytes # (Auto) 0.9L, Monocytes # (Auto) 1.0, Eosinophils # (Auto) 0.0, Basophils # (Auto) 0.0, Immature Granulocyte # (Auto) 0.0, Sodium Level 139, Potassium Level 3.9, Chloride Level 107, Carbon Dioxide Level 23, Anion Gap 9, Blood Urea Nitrogen 20H, Creatinine 0.94, Estimat Glomerular Filtration Rate 81, BUN/C reatinine Ratio 21, Glucose Level 86, Calcium Level 9.6, Phosphorus Level 1.7L, Magnesium Level 2.0 Microbiology 04/13/21 MRSA Screen - Final, Complete MRSA not isolated Assessment/Plan Assessment/Plan Admission Diagonsis Acute appendicitis Assessment/Plan Left lower quadrant abdominal pain Acute appendicitis which was perforated status post laparoscopic appendectomy and drain placement. Bradycardia Hypertension Sarcoid Patient continue on Zosyn Lovenox for milligrams daily for DVT prophylaxis SCDs Continue clear liquids today. Encouraged more physical activity, pt to work with PT Move to fourth floor. Clinical Quality Measures DVT/VTE Risk/Contraindication: Contraindications-Pharm: Other *list below* Other: or NOEL SOTO DO 04/15/21 1432: Subjective Subjective/Events-last exam Patient is feeling good. Is not having significant pain. His pain is controlled. Does not like taking the pain medication. He is passing flatus. He is having serosanguineous drainage from the STEPHANEI drain he is tolerating clear liquids. Denies any nausea vomiting fever sweats chills shortness of breath or chest pain at this time. Using incentive spirometer some. Objective Exam General Appearance: No Apparent Distress, WD/WN HEENT: PERRL/EOMI, Normal ENT Inspection, Pharynx Normal Neck: Non Tender, Supple Respiratory: Chest Non Tender, No Accessory Muscle Use Cardiovascular: Regular Rate, Rhythm, No JVD Gastrointestinal: soft, tenderness (Incisional, drain serosanguineous no purulent drainage) Extremity: Normal Inspection, Non Tender Neurologic/Psychiatric: Alert, Oriented x3, No Motor/Sensory Deficits, Normal Mood/Affect Skin: Normal Color, Warm/Dry Lymphatic: No Adenopathy Assessment/Plan Assessment/Plan Assessment/Plan Left lower quadrant abdominal pain Acute appendicitis which was perforated status post laparoscopic appendectomy and drain placement. Bradycardia Hypertension Sarcoid Patient continue on Zosyn Lovenox for daily for DVT prophylaxis SCDs Continue clear liquids today. Encouraged more physical activity, pt to work with PT Move to fourth floor. Supervisory-Addendum Brief Verification & Attestation Participated in pt care: history, MDM, physical Personally performed: exam, history, MDM, supervision of care Care discussed with: Medical Student Procedures: n/a Results interpretation: Verified all documentation Verification and Attestation of Medical Student E/M Service A medical student performed and documented this service in my presence. I reviewed and verified all information documented by the medical student and made modifications to such information, when appropriate. I personally performed the physical exam and medical decision making. Noel Soto, Apr 15, 2021,14:32 MAYUR CARR Apr 15, 2021 09:40 NOEL SOTO DO Apr 15, 2021 14:32
--- NOTE | 2021-04-15 09:46 | Tele-ICU Progress Note ---
Progress Note video round completed s.p lap appy for perforation Postop bradycardia in ICU, now resolved On zosyn for perforation PE: pulse 80 awake and lert Hypertenive 172/92 PLAN: [facility] transfer out today BP control Focused Exam Height, Weight, BMI Height: 5'7.00" Weight: 219lbs. 0.0oz. 99.066337co; 222.22 BMI Method: Laboratory Tests 04/15/21 05:52 Labs Labs Laboratory Tests 04/15/21 05:52: White Blood Count 11.1H, Red Blood Count 4.28L, Hemoglobin 13.0L, Hematocrit 39L , Mean Corpuscular Volume 92, Mean Corpuscular Hemoglobin 30, Mean Corpuscular Hemoglobin Concent 33, Red Cell Distribution Width 12.6, Platelet Count 148, Mean Platelet Volume 9.7, Immature Granulocyte % (Auto) 0, Neutrophils (%) (Auto) 82H, Lymphocytes (%) (Auto) 8L, Monocytes (%) (Auto) 9, Eosinophils (%) (Auto) 0, Basophils (%) (Auto) 0, Neutrophils # (Auto) 9.1H, Lymphocytes # (Auto) 0.9L, Monocytes # (Auto) 1.0, Eosinophils # (Auto) 0.0, Basophils # (Aut o) 0.0, Immature Granulocyte # (Auto) 0.0, Sodium Level 139, Potassium Level 3.9, Chloride Level 107, Carbon Dioxide Level 23, Anion Gap 9, Blood Urea Nitrogen 20H, Creatinine 0.94, Estimat Glomerular Filtration Rate 81, BUN/Creatinine Ratio 21, Glucose Level 86, Calcium Level 9.6, Phosphorus Level 1.7L, Magnesium Level 2.0 Microbiology 04/13/21 MRSA Screen - Final, Complete MRSA not isolated ALEX CASPER MD Apr 15, 2021 09:46
--- NOTE | 2021-04-15 11:24 | Cardiology Progress Note ---
Subjective Date Seen by Provider: Apr 15, 2021 Time Seen by Provider: 11:22 Subjective/Events-last exam Patient was seen at bedside, laying down comfortably, denied any chest pain. Review of Systems General: No Chills, No Night Sweats, No Fatigue, No Malaise, No Appetite, No Other HEENT: No Head Aches, No Visual Changes, No Eye Pain, No Ear Pain, No Dysphasia, No Sinus Congestion, No Post Nasal Drip, No Sore Throat, No Other Pulmonary: No Dyspnea, No Cough, No Pleuritic Chest Pain, No Other Cardiovascular: No: Chest Pain, Palpitations, Orthopnea, Paroxysmal Noc. Dyspnea, Edema, Lt Headedness, Other Objective-Cardiology Exam Last Set of Vital Signs Vital Signs 04/15/21 04/15/21 08:01 10:00 Temp 36.6 Pulse 88 Resp 24 B/P (MAP) 172/92 Pulse Ox 95 O2 Delivery Nasal Cannula O2 Flow Rate 2.00 I&O Intake and Output 04/15/21 00:00 Intake Total 1450 ml Output Total 1920 ml Balance -470 ml Intake Oral 1450 ml Output Urine Total 1850 ml Drainage Total 70 ml # Voids 1 General: Alert, Oriented X3, Cooperative HEENT: Atraumatic, PERRLA Neck: Supple, No JVD, No Thyromegaly Lungs: Clear to Auscultation, Normal Air Movement Heart: Regular Rate, Normal S1, Normal S2, No Murmurs Abdomen: Normal Bowel Sounds, Soft, No Tenderness, No Hepatosplenomegaly, No Masses Extremities: No Clubbing, No Cyanosis, No Edema, Normal Pulses, No Tenderness/Swelling Skin: No Rashes, No Breakdown, No Significant Lesion Neuro: Normal Gait, Normal Speech, Strength at 5/5 X4 Ext, Normal Tone, Sensation Intact Psych/Mental Status: Mental Status NL, Mood NL Results Lab Laboratory Tests 04/15/21 05:52 A/P-Cardiology Admission Diagnosis Syncope Bradycardia Acute appendicitis Hypertension Assessment/Plan Syncope with severe bradycardia, probably vasovagal episode, had transient episode of bradycardia while in the emergency room in [facility]. Responded to atropine. No rhythm strips available at the chart at this time. Patient reported that had similar episode about 15 years ago with nausea and vomiting. 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 Could benefit from selective beta one manfred. Patient was on propranolol, I will change it to Toprol-XL 25 mg daily and monitor Acute appendicitis, status post appendectomy, done on 04/13/2021, recovering well. Continue to monitor Hypertension, I will change propranolol to metoprolol and evaluate tolerance and response Hypothyroidism, restart levothyroxine. History of sarcoidosis, mild LVH on echo. Normal systolic function. Normal conduction. No valvular heart disease. Continue to monitor Obesity, discussed weight loss JASON SEVERINO MD Apr 15, 2021 11:24
--- NOTE | 2021-04-15 11:53 | Progress Note - Hospitalist ---
Subjective HPI/CC On Admission Date Seen by Provider: Apr 15, 2021 Time Seen by Provider: 09:20 CC: Acute appendicitis with syncopal episode with bradycardia HPI: This is a 65yoWM who presents to the ICU after having a syncopal episode at [facility] [place] arriving [place] due to abdominal pain. He was found to have significant bradycardia at 20 and crash cart was moved into the room due to near complete decompensation. Dr Reese was consulted for central line since they could not obtain access so during the critical episode an IO was placed in his left leg and atropine was given with good results. CT obtained once he was stable revealing appendicitis. Currently his HR is 62 and BP stable. Subjective/Events-last exam He is doing better. He has not had any bowel movements. He has not had any further bleeding. He has been having clear liquids without issue. Objective Exam Vital Signs Vital Signs Date Time Temp Pulse Resp B/P (MAP) Pulse Ox O2 Delivery O2 Flow Rate FiO2 04/15/21 11:30 36.9 81 20 176/86 95 Room Air 04/15/21 10:00 2.00 Capillary Refill : General Appearance: No Apparent Distress, WD/WN Respiratory: Lungs Clear, Normal Breath Sounds, No Respiratory Distress Cardiovascular: Regular Rate, Rhythm, No Edema, No Murmur Gastrointestinal: Normal Bowel Sounds, Non Tender, Soft Extremity: Normal Inspection, Non Tender, No Pedal Edema Neurologic/Psychiatric: Alert, Oriented x3, No Motor/Sensory Deficits, Normal Mood/Affect Skin: Normal Color, Warm/Dry Results/Procedures Lab Laboratory Tests 04/15/21 05:52 Patient resulted labs reviewed. Assessment/Plan Assessment and Plan Assess & Plan/Chief Complaint Acute appendicitis with perforation Surgery following s/p laparoscoic appendectomy 04/[address] Zosyn Transfer to 4th floor Vasovagal syncope Bradycardia Cardiology following Heart rates improved Sarcoidosis Clinically significant, no acute management needs Tobacco abuse Nicotine patch DVT prophylaxis: Lovenox Diagnosis/Problems Diagnosis/Problems (1) Appendicitis Status: Acute Qualifiers: Appendicitis type: acute appendicitis Appendicitis perforation presence: with perforation (2) Syncope and collapse Status: Acute (3) Bradycardia Status: Acute (4) Sarcoidosis Status: Chronic (5) Tobacco abuse Status: Chronic Clinical Quality Measures DVT/VTE Risk/Contraindication: Contraindications-Pharm: Other *list below* Other: or JOHANNE LIEBERMAN MD Apr 15, 2021 11:53
[2021-04-15] MEDS: ENOXAPARIN 40 MG/0.4 ML (LOVENOX) SYR SC SCH (13:30)
[2021-04-15] MEDS: ACETAMINOPHEN 325 MG TABLET PO PRN (17:27)
[2021-04-16] MEDS: PIPERACILLIN/TAZOBACTAM (BULK) 4.5 GM in NS (IVPB) 100 ML IV SCH (02:56)
[2021-04-16] MEDS: ACETAMINOPHEN 325 MG TABLET PO PRN (03:11)
[2021-04-16 04:52] LABS: BASOPHILS % (AUTO) 0 % (0-10); EOSINOPHILS # (AUTO) 0.1 10^3/uL (0.0-0.3); EOSINOPHILS % (AUTO) 1 % (0-10); HEMATOCRIT 42 % (40-54); LYMPHOCYTES # (AUTO) 0.6 10^3/uL (1.0-4.0); LYMPHOCYTES % (AUTO) 6 % (12-44); MEAN CORPUSCULAR HEMOGLOBIN 30 pg (25-34); MEAN CORPUSCULAR HGB CONC 34 g/dL (32-36); MEAN CORPUSCULAR VOLUME 90 fL (80-99); MEAN PLATELET VOLUME 9.4 fL (9.0-12.2); MONOCYTES % (AUTO) 10 % (0-12); NEUTROPHILS # (AUTO) 8.5 10^3/uL (1.8-7.8); NEUTROPHILS % (AUTO) 83 % (42-75); PLATELET COUNT 156 10^3/uL (130-400); WHITE BLOOD COUNT 10.3 10^3/uL (4.3-11.0)
[2021-04-16 05:03] LABS: POTASSIUM 3.7 MMOL/L (3.6-5.0)
[2021-04-16 05:04] LABS: CALCIUM 9.7 MG/DL (8.5-10.1)
[2021-04-16 05:08] LABS: CREATININE SERUM 0.88 MG/DL (0.60-1.30)
[2021-04-16] MEDS: LEVOTHYROXINE 100 MCG (LEVOTHROID) TAB PO SCH (05:24)
--- NOTE | 2021-04-16 07:07 | Progress Note - Surgery ---
NAJERA-MAYUR ROACH 04/16/21 0707: Subjective Date Seen by a Provider: Apr 16, 2021 Time Seen by a Provider: 07:03 Subjective/Events-last exam Ismael is doing well; he is laying in bed, and is talkative and alert. He denies any abdominal pain or nausea. States that he had solid food yesterday, and tolerated well. Wound drain shows sero-sanguineous fluid. Reports he is using IS, and has been intermittently getting up from bed to walk around, but states he is limited due to the cords he is hooked up to. Has flatus. Ismael is eager to go home. Review of Systems General: No Chills, No Night Sweats HEENT: No Head Aches, No Visual Changes Pulmonary: No Dyspnea, No Cough Cardiovascular: No: Chest Pain, Palpitations Gastrointestinal: No: Nausea, Vomiting, Abdominal Pain Genitourinary: No Dysuria, No Frequency Musculoskeletal: No: arm pain, back pain Neurological: No: Weakness, Numbness Focused Exam Respiratory: Chest Non Tender, Lungs Clear, Normal Breath Sounds Cardiovascular: Regular Rate, Rhythm, No Edema, No Gallop, No Murmur Peripheral Pulses: 2+ Radial Pulses (R), 2+ Radial Pulses (L) Skin: normal color, warm/dry, cyanosis Objective Exam Vital Signs Date Time Temp Pulse Resp B/P (MAP) Pulse Ox O2 Delivery O2 Flow Rate FiO2 04/16/21 03:00 37.4 88 20 164/84 94 Room Air 04/16/21 01:00 77 04/15/21 23:19 36.8 81 20 165/86 95 Room Air 04/15/21 19:24 Room Air 04/15/21 19:07 37.2 96 20 166/76 94 Room Air 04/15/21 19:00 84 04/15/21 15:54 37.4 138/70 04/15/21 15:33 37.4 93 22 188/99 95 Room Air 04/15/21 12:37 82 04/15/21 11:30 36.9 81 20 176/86 95 Room Air 04/15/21 10:00 88 24 172/92 95 Nasal Cannula 2.00 04/15/21 09:28 94 04/15/21 09:00 85 14 183/96 92 Nasal Cannula 2.00 04/15/21 08:01 36.6 04/15/21 08:00 87 19 186/90 94 Nasal Cannula 2.00 04/15/21 07:32 93 Room Air I & O 04/16/21 07:00 Intake Total 2300 ml Output Total 3835 ml Balance -1535 ml Capillary Refill : General Appearance: No Apparent Distress, WD/WN HEENT: PERRL/EOMI, Normal ENT Inspection, Pharynx Normal Neck: Non Tender, Supple Respiratory: Chest Non Tender, No Accessory Muscle Use Cardiovascular: Regular Rate, Rhythm, No JVD Peripheral Pulses: 2+ Radial Pulses (R), 2+ Radial Pulses (L) Gastrointestinal: soft, tenderness (Incisional, drain serosanguineous no purulent drainage) Extremity: Normal Inspection, Non Tender Neurologic/Psychiatric: Alert, Oriented x3, No Motor/Sensory Deficits, Normal Mood/Affect Skin: Normal Color, Warm/Dry Lymphatic: No Adenopathy Results Lab Laboratory Tests 04/16/21 04:45: White Blood Count 10.3, Red Blood Count 4.63, Hemoglobin 14.0, Hematocrit 42, Mean Corpuscular Volume 90, Mean Corpuscular Hemoglobin 30, Mean Corpuscular Hemoglobin Concent 34, Red Cell Distribution Width 12.4, Platelet Count 156, Mean Platelet Volume 9.4, Immature Granulocyte % (Auto) 0, Neutrophils (%) (Auto) 83H, Lymphocytes (%) (Auto) 6L, Monocytes (%) (Auto) 10, Eosinophils (%) (Auto) 1, Basophils (%) (Auto) 0, Neutrophils # (Auto) 8.5H, Lymphocytes # (Auto) 0.6L, Monocytes # (Auto) 1.0, Eosinophils # (Auto) 0.1, Basophils # (Auto) 0.0, Immature Granulocyte # (Auto) 0.0, Sodium Level 138, Potassium Level 3.7, Chloride Level 104, Carbon Dioxide Level 23, Anion Gap 11, Blood Urea Nitrogen 18, Creatinine 0.88, Estimat Glomerular Filtration Rate 87, BUN/Creatinine Ratio 20, Glucose Level 97, Calcium Level 9.7 Microbiology 04/13/21 MRSA Screen - Final, Complete MRSA not isolated Meds Item Value Date Time Metoprolol 25 mg 04/15/21 0945 Succinate DAILY/PO 04/15/21 0953 (Toprol Xl Tablet) Miscellaneous REMOVE Nicoderm patch 04/15/21 0900 (Patch Removal) DAILY/TP 04/15/21 0930 Levothyroxine 200 mcg 04/15/21 0630 Sodium DAILY@0630/PO 04/16/21 0524 (Synthroid Tablet) Enoxaparin Sodium 40 mg 04/14/21 1315 (Lovenox Q24H/SC 04/15/21 1330 Injection) Nicotine 14 mg 04/14/21 1030 (Nicoderm Patch) DAILY@0900/TD 04/15/21 0929 Acetaminophen 650 mg 04/14/21 0545 (Tylenol Tablet) Q4H PRN/PO 04/16/21 0311 Albuterol/ 3 ml 04/13/21 2300 Ipratropium RTQ4HR PRN/INH (Duoneb Inhalation Solution) Acetaminophen/ 1 ea 04/13/21 2045 Hydrocodone Bitart Q4H PRN/PO (Lortab 5 Mg Tablet) Piperacillin Sod/ 120 ml @ 30 mls/hr 04/13/21 1800 Tazobactam Sod Q8H/IV 04/16/21 0256 4.5 gm/Sodium Chloride Lactated Ringer's 1,000 ml @ 0 mls/hr 04/13/21 1315 Pantoprazole 40 mg 04/13/21 1627 (Protonix DAILY/IV 04/15/21 0929 Injection) Acetaminophen 650 mg 04/13/21 1130 (Tylenol Q4H PRN/VA 04/13/21 1247 Suppository) Ondansetron HCl 4 mg 04/13/21 0945 (Zofran Q4H PRN/IVP Injection (Sdv)) Lorazepam 0.25 mg 04/13/21 0945 (Ativan Q3HR PRN/IVP Injection) Assessment/Plan Assessment/Plan Assessment/Plan Left lower quadrant abdominal pain Acute appendicitis which was perforated status post laparoscopic appendectomy and drain placement. Bradycardia Hypertension Sarcoid Patient continue on Zosyn Lovenox for daily for DVT prophylaxis SCDs Continue clear liquids today. Encouraged more physical activity, pt to work with PT Move to fourth floor. Clinical Quality Measures DVT/VTE Risk/Contraindication: Contraindications-Pharm: Other *list below* Other: or NOEL SOTO DO 04/16/212152: Subjective Subjective/Events-last exam Patient doing well.Tolerating diet. Pain is controlled with oral pain medication. Passing flatus. His Dario-Olson drain serosanguineous. He is using incentive spirometer without difficulty. Patient wanting to go home. Denies any nausea vomiting fever sweats chills shortness of breath or chest pain. Objective Exam General Appearance: No Apparent Distress, WD/WN HEENT: PERRL/EOMI, Normal ENT Inspection, Pharynx Normal Neck: Non Tender, Supple Respiratory: Chest Non Tender, No Accessory Muscle Use Cardiovascular: Regular Rate, Rhythm, No JVD Gastrointestinal: soft, tenderness (Incisional, drain serosanguineous no purulent drainage) Extremity: Normal Inspection, Non Tender Neurologic/Psychiatric: Alert, Oriented x3, No Motor/Sensory Deficits Skin: Normal Color, Warm/Dry Lymphatic: No Adenopathy Assessment/Plan Assessment/Plan Assessment/Plan Left lower quadrant abdominal pain Acute appendicitis which was perforated status post laparoscopic appendectomy and drain placement. Bradycardia Hypertension Sarcoid Patient continue on Zosyn convert to Augmentin PO Lovenox for daily for DVT prophylaxis SCDs Diet as tolerates Once drain is less than 30 ml in 24 hours patient instructed to call office and have them remove it the next day. Dc home today. Supervisory-Addendum Brief Verification & Attestation Participated in pt care: history, MDM, physical Personally performed: exam, history, MDM, supervision of care Care discussed with: Medical Student Procedures: n/a Results interpretation: Verified all documentation Verification and Attestation of Medical Student E/M Service A medical student performed and documented this service in my presence. I reviewed and verified all information documented by the medical student and made modifications to such information, when appropriate. I personally performed the physical exam and medical decision making. Noel Soto, Apr 16, 2021,21:54 MAYUR CARR Apr 16, 2021 07:07 NOEL SOTO DO Apr 16, 2021 21:53
[2021-04-16] MEDS: PANTOPRAZOLE 40 MG (PROTONIX) VIAL IV SCH (08:15)
[2021-04-16] MEDS: NICOTINE 14 MG (NICODERM) PATCH TD SCH (08:15)
[2021-04-16] MEDS: PATCH REMOVAL TP SCH (08:16)
--- NOTE | 2021-04-16 08:32 | Cardiology Progress Note ---
Subjective Date Seen by Provider: Apr 16, 2021 Time Seen by Provider: 08:31 Subjective/Events-last exam Patient is sitting up in bed, denies any chest pain. Blood pressure elevated today Review of Systems General: No Chills, No Night Sweats, No Fatigue, No Malaise, No Appetite, No Other HEENT: No Head Aches, No Visual Changes, No Eye Pain, No Ear Pain, No Dysphasia, No Sinus Congestion, No Post Nasal Drip, No Sore Throat, No Other Pulmonary: No Dyspnea, No Cough, No Pleuritic Chest Pain, No Other Cardiovascular: No: Chest Pain, Palpitations, Orthopnea, Paroxysmal Noc. Dyspnea, Edema, Lt Headedness, Other Objective-Cardiology Exam Last Set of Vital Signs Vital Signs 04/15/21 04/16/21 10:00 08:22 B/P (MAP) 140/100 O2 Flow Rate 2.00 I&O Intake and Output 04/16/21 00:00 Intake Total 3440 ml Output Total 3925 ml Balance -485 ml Intake Oral 1080 ml IV Total 2360 ml Output Urine Total 3875 ml Drainage Total 50 ml General: Alert, Oriented X3, Cooperative HEENT: Atraumatic, PERRLA Neck: Supple, No JVD, No Thyromegaly Lungs: Clear to Auscultation, Normal Air Movement Heart: Regular Rate, Normal S1, Normal S2, No Murmurs Abdomen: Normal Bowel Sounds, Soft, No Tenderness, No Hepatosplenomegaly, No Masses Extremities: No Clubbing, No Cyanosis, No Edema, Normal Pulses, No Tenderness/Swelling Skin: No Rashes, No Breakdown, No Significant Lesion Neuro: Normal Gait, Normal Speech, Strength at 5/5 X4 Ext, Normal Tone, Sensation Intact Psych/Mental Status: Mental Status NL, Mood NL Results Lab Laboratory Tests 04/16/21 04:45 A/P-Cardiology Admission Diagnosis Syncope Bradycardia Acute appendicitis Hypertension Assessment/Plan Syncope with severe bradycardia, probably vasovagal episode, had transient episode of bradycardia while in the emergency room in [facility]. Responded to atropine. No rhythm strips available at the chart at this time. Patient reported that had similar episode about 15 years ago with nausea and vomiting. 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 Could benefit from selective beta one manfred. Patient was on propranolol, changed it to Toprol-XL 25 mg. Continue to monitor. Acute appendicitis, status post appendectomy, done on 04/13/2021, recovering well. Continue to monitor Hypertension, elevated, I will add losartan 25mg in addition to the Toprol XL Hypothyroidism, restart levothyroxine. History of sarcoidosis, mild LVH on echo. Normal systolic function. Normal conduction. No valvular heart disease. Continue to monitor Obesity, discussed weight loss OK for discharge from cardiology standpoint. F/u in 2-4 weeks Supervisory-Addendum Brief Supervisory Addendum Participated in pt care: history, MDM, physical Personally performed: exam, history, MDM Care discussed with: MARTINEZ Results interpretation: Verified all documentation Notes: Patient was seen and evaluated with Keke, examination performed, management plan was discussed, agree with the current scribed note, I made few changes to the note using Italic font Patient was laying down in bed, feeling better, no new complaint Asking about going home Noted to have elevated blood pressure Tolerating metoprolol well, I will add losartan 25 mg and evaluate tolerance and response Okay for discharge from cardiology standpoint KEKE RIZO Apr 16, 2021 08:32 JASON SEVERINO MD Apr 16, 2021 10:28
[2021-04-16] MEDS ORDERED: ASCO500T17 PO (09:05)
[2021-04-16] MEDS ORDERED: CHOL20003 PO (09:05)
[2021-04-16] MEDS ORDERED: ACET-2267 PO (09:05)
[2021-04-16] MEDS ORDERED: PROP80CA4 PO (09:05)
[2021-04-16] MEDS ORDERED: LEVO200T6 PO (09:05)
[2021-04-16] MEDS ORDERED: LOSA25TA41 PO (10:21)
[2021-04-16] MEDS ORDERED: MTP25TSR PO (10:21)
--- NOTE | 2021-04-16 10:24 | Physical Therapy Progress Note ---
Therapy Progress Note PT visited with patient and spouse. PT observed patient independent with bed mobility, transfers and ambulation. PT to dismiss patient from services at this time. 1 visit NABIL FLANAGAN PT Apr 16, 2021 10:24
== END 2021-04-16 11:10 | disposition home or self-care (01) | DRG 340 ==
LOC: 4TH 10:40 → ICU 11:22 → OBSVTOIN 15:53 → 4TH 04-15 11:03
PROVIDERS: ADMIT Internal Medicine; ATTEND Internal Medicine
PROC: 0DTJ4ZZ Resection of Appendix, Percutaneous Endoscopic Approach (ICD-10-PCS; principal; 2021-04-13 14:06)
DX: K35.32 Acute appendicitis with perforation, localized peritonitis, and gangrene, without abscess (principal); R55 Syncope and collapse; R00.1 Bradycardia, unspecified; D86.9 Sarcoidosis, unspecified; I10 Essential (primary) hypertension; E89.0 Postprocedural hypothyroidism; E66.9 Obesity, unspecified; Z68.34 Body mass index [BMI] 34.0-34.9, adult; Z87.891 Personal history of nicotine dependence; Z79.899 Other long term (current) drug therapy; Z79.890 Hormone replacement therapy
CPT/HCPCS: 36415; 71045; 80048; 80053; 83735; 84100; 84484; 85007; 85025; 85027; 87081; 93306; 94760; G0378